=== PATIENT | female | born 1955 | race Caucasian/White ===

== ENCOUNTER → 2016-08-19 10:14 | Day surgery (SDC) | payer BC ==
--- NOTE | 2016-08-14 17:11 | HP ---
ADMISSION HISTORY AND PHYSICAL: DATE OF ADMISSION: 08/19/16 ATTENDING SURGEON: Sampson Peter MD (MALI Sorto dictating) EMT P COMPLAINT: Umbilical hernia. HISTORY OF PRESENT ILLNESS: This is a 61-year-old female with multiple medical problems who has had an umbilical hernia for many years and had been relatively asymptomatic until recent months when she noticed some increased frequency of discomfort and gurgling noise requiring manual reduction. It has always been reducible. She has never had any severe pain or anything to suggest incarceration or strangulation. She had had multiple previous CT scans, all of which have apparently shown fat-containing umbilical hernia. She was seen in the office by Dr. Peter on 08/01/16 at which time, exam confirmed the presence of a minimally tender reducible umbilical hernia. Dr. Peter has discussed with her the indications for repair, the risks, benefits, and alternatives. She has also been seen recently by Dr. Hall for Cardiology followup. Because of her past history of DVTs as well as strong family history of same, she was recommended to bridge her usual warfarin with Lovenox therapy. She is instructed to hold her warfarin after 08/13/16 dose with plans to resume at the evening of surgery unless otherwise directed by Dr. Peter. She will initiate Lovenox 100 mg SC b.i.d. beginning 08/16/16 and continuing through the morning dose of 08/18/16. Postoperatively, she will resume Lovenox on the morning of 08/21/16 and continue b.i.d. until her INR is greater than or equal to 2. She does have an INR robel at home. PAST MEDICAL HISTORY: Morbid obesity; type 2 diabetes; hypertension; DVT x2 left lower extremity, both following injuries; hyperlipidemia; depression; GERD ; neuropathic pain of the right groin; allergic and seasonal rhinitis; and history of asthma. PREVIOUS SURGERIES: Right shoulder surgery x2 (most recently about 3 years ago , for which she also did Lovenox bridging), D and C remotely, right breast lumpectomy for benign disease 2003, sinus surgery x4, endometrial biopsy 2011, and x2 both via vertical midline incision. No reported surgical or anesthesia problems. CURRENT MEDICATIONS: 1. Warfarin 1 mg tablet. She takes 2 tablets every Thursday, Thursday, Thursday , Thursday, and Thursday and 3 tablets every Thursday and and checks her own INR once weekly with recommendations per Dr. Adhikari's office. 2. Iron 65 mg once daily. 3. Vitamin C 500 mg once daily. 4. Atorvastatin 10 mg once daily. 5. Fexofenadine 180 mg once daily. 6. Bupropion XL 150 mg once daily. 7. Metoprolol succinate ER 25 mg once daily. 8. Gabapentin 100 mg 2 tablets q.a.m. and 1 tablet q. noon. 9. Gabapentin 600 mg 1 tablet q.p.m. 10. Fluoxetine 20 mg and 10 mg 1 tablet each for a total of 30 mg once daily. 11. Losartan/HCTZ 100/25 mg 1 tablet once daily. 12. Metformin 1000 mg b.i.d. 13. Omeprazole 20 mg once daily. 14. Januvia 100 mg once daily. 15. Symbicort 80/4.5 mcg/activation 2 puffs twice daily p.r.n. (has not need recently). 16. ProAir HFA 108 mcg/activation 2 puffs every 4 hours p.r.n. (has not required recently). ALLERGIES: TETRACYCLINE (difficulty breathing), TRAMADOL (weird feeling), ASPIRIN (GI upset), and LATEX (rash). FAMILY HISTORY: Positive for DVT and multiple family members including her mother and brother. No reported anesthesia problems or bleeding disorder. SOCIAL HISTORY: The patient is . They also have a special needs child who lives with them on weekends. 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 The patient denies history of tobacco use or recent history of alcohol use. She denies any other drug use. REVIEW OF SYSTEMS: General: No recent constitutional symptoms or acute illnesses other than per the HPI. Cardiovascular: She has a history of hypertension. No recent episodes of chest pain (previous evaluation revealed an equivocal nuclear stress test, but normal catheterization. See also Dr. Hall's note). Respiratory: History of asthma. No recent exacerbation of her asthma. No shortness of breath or chronic cough. GI: GERD symptoms well controlled with omeprazole. No other GI symptoms reported. She has had apparently a few benign polyps removed in the past, most recent colonoscopy in her chart record is 2011. : No problems reported. BAG FILLER: She states that she is up-to-date for breast exam in May 2016 and mammogram within the past year and a half. No problems reported. Endocrine: She does fingersticks once weekly. Her most recent being 132. She believes that her most recent A1c was around 7. No history of thyroid dysfunction. Neurological: No problems reported. PHYSICAL EXAMINATION GENERAL: A well-nourished morbidly obese female, in no acute distress. VITAL SIGNS: Height 67.5 inches, weight 274 pounds, BMI 42.3, temperature 97.8 , blood pressure 124/84, pulse 78, and respirations 16. SKIN: Warm and dry. No suspicious rashes or lesions noted. See also below for extremities. HEENT: Pupils equal and round, reactive. EOMs intact. No conjunctival pallor. Oropharynx: Teeth in [id number]-moax repair. She does have a partial upper denture. No intraoral lesions. NECK: No lymphadenopathy, thyromegaly, or masses. LUNGS: Clear to auscultation. No wheezes. HEART: Regular rate and rhythm. No murmur noted. BREASTS: Not examined. ABDOMEN: A well-healed lower midline incision. There is a visible and palpable bones at the umbilicus as described in the HPI. The remainder of the abdomen is soft and nontender without palpable masses or organomegaly, though exam is limited by body habitus. GENITALIA: Not done. RECTUM: Not done. BACK: No spinous process or CVA tenderness. EXTREMITIES: No significant edema. There are hyperpigmentation changes in both lower extremities, left greater than right. No open ulcerations. No calf tenderness. IMPRESSION: Umbilical hernia. PLAN/RECOMMENDATIONS: Open repair, umbilical hernia with mesh. MALI SORTO CC: Jessica Adhikari MD; Frank Hall MD* [id number]/[facility] #: [id number] MTDD
[~2016-08-19 10:14] MED LIST: Buffered Lidocaine 1% SYR 3ML* 3 ML/SYR SYRINGE INTRADERM ONE; Bupivacaine 0.5% W/EPI SDV* 30 ML VIAL ONE; Cisatracurium* 2 MG/ML MDV 10 ML ONE; Dexamethasone IV* 4 MG/ML 1 ML (4 MG) ONE; DiMENhydriNATE IV* 50 MG/ML VIAL IV PUSH PRN; Famotidine IV* 10 MG/ML 2 ML (20 mg) IV ONE; Famotidine IV* 10 MG/ML 2 ML (20 mg) ONE; HYDROmorphone INJ* 1 MG/ML CARPUJECT SYRINGE ONE; KETAMINE HCL* 50 MG/ML 10 ML VIAL ONE; Ketorolac INJ* 30 MG/ML 1 ML VIAL ONE; Lidocaine 1% INJ* 10 MG/ML 30 ML SDV ONE; Lidocaine 2% PF * 5 ML VIAL ONE; Metoclopramide TAB* 10 MG ONE; Metoclopramide TAB* 10 MG PO ONE; Midazolam* 1 MG/ML 2 ML VIAL (2 MG) ONE; Midazolam* 1 MG/ML 5 ML VIAL (5 MG) ONE; Ondansetron INJ* 2 MG/ML VIAL IV PRN; Ondansetron INJ* 2 MG/ML VIAL ONE; Propofol* 10 MG/ML 20 ML BTL IV PUSH ONE; ceFAZolin 1 GM in Dextrose (*) 1 GM/50 ML BAG IVPB ONE; ceFAZolin 2 GM PREMIX (*) 2 GM/50 ML BAG IVPB ONE; fentaNYL* 50 MCG/ML 2 ML VIAL (100 MCG VIAL) IV PRN; fentaNYL* 50 MCG/ML 2 ML VIAL (100 MCG VIAL) ONE; oxyCODONE/Acetamin 5/325 MG* TAB PO PRN
[2016-08-19] MEDS: HYDROmorphone INJ* 1 MG/ML CARPUJECT SYRINGE IV PRN ×2 (14:08→14:54)
[2016-08-19 15:10] VITALS: BP 112/63
--- NOTE | 2016-08-20 13:47 | OP ---
DATE OF OPERATION: 08/19/16 - [facility] DATE OF : 53 SURGEON: Sampson Peter MD CLINICAL AUDITOR: MALI Oconnor ANESTHESIOLOGIST: Douglas Slade MD ANESTHESIA: Local MAC. PRE-OP DIAGNOSIS: Umbilical hernia. POST-OP DIAGNOSIS: Umbilical hernia. OPERATIVE PROCEDURE: Open repair umbilical hernia with mesh. ESTIMATED BLOOD LOSS: Minimal. IV FLUIDS: Crystalloid. SPECIMEN: None. DRAINS: None. COMPLICATIONS: None. INSTRUMENTS: The instrument, needle and sponge counts were correct. DESCRIPTION OF PROCEDURE: The patient was brought to the operating room and placed on table supine. Sequential compression devices were placed on both lower extremities. She was administered intravenous sedation and appropriate antibiotics. Her abdomen was prepped and draped in the usual sterile fashion. Time-out was performed. Local anesthetic was infiltrated into the skin and soft tissue and then a curvilinear infraumbilical incision was created. The umbilical stalk was elevated off the abdominal wall. A large fatty infiltrated umbilical hernia sac was identified and this was dissected free from the umbilical ring. The preperitoneal space was developed bluntly with a finger and also with the use of cautery. At one point, the peritoneum was entered, however, with a small rent. The repair was then performed with the Bard circular mesh using a large size patch and placing this into the preperitoneal space and elevating the tabs so that the mesh could be sutured to the fascia in 4 quadrants with 0 Ti-Cron suture. The tabs were cut and then the fascial defect was closed with same 0 Ti -Cron in interrupted figure-of- eight fashion. Umbilical stalk was reapproximated to the fascia with a 3-0 Polysorb and skin was closed with 4-0 Monocryl in a subcuticular fashion. Steri-Strips were applied. The patient tolerated the procedure well. She was transferred to recovery room in stable condition. CC: Jessica Adhikari M.D.* [id number]/[facility] #: [id number] [place]
== END | disposition home or self-care (01) ==
LOC: OR 10:14
PROVIDERS: ATTEND Surgery
DX: K42.9 Umbilical hernia without obstruction or gangrene (principal); Z86.718 Personal history of other venous thrombosis and embolism; Z79.01 Long term (current) use of anticoagulants; E11.8 Type 2 diabetes mellitus with unspecified complications; Z79.84 Long term (current) use of oral hypoglycemic drugs; J45.909 Unspecified asthma, uncomplicated
CPT/HCPCS: A9270-GY; C1781; J0690; J1100; J1170; J1885; J2250; J2405; J2704; J3010

== ENCOUNTER 2018-10-17 11:46 | Emergency (ER) | payer BC ==
[2018-10-17] MEDS ORDERED: Aspirin 81 mg CHEW TAB* 81 MG TAB.CHEW PO ONE (12:01)
--- NOTE | 2018-10-17 12:03 | ED ---
HPI Chest Pain - HPI Summary HPI Summary: This patient is a 63 year old female presenting to [facility] with a chief complaint of chest pain minutes [employer]. The patient states it started with epigastric pain, nausea, vomiting last night and progressed to mid-sternal chest pain that radiates to her right arm and her back this morning. She reports SOB, diaphoresis. She denies diarrhea and constipation. She rates her pain 7/10 in severity. The patient reports Hx of diabetes, HTN, HLD. Fexofenadine (NF) [Maryam 180 (NF)] 1 tab PO QAM 06/02/12 [History Confirmed ] Atorvastatin* [Lipitor 10 MG*] 1 tab PO DAILY 05/22/14 [History Confirmed ] buPROPion HCl [Bupropion HCl ER] 1 tab PO DAILY 05/22/14 [History Confirmed 12/29] Albuterol inh POWDER (NF) [Proair Respiclick] 2 puff INH Q4H PRN 09/06/15 [ History Confirmed 08/19/16] Ascorbic Acid [Vitamin C] 1 tab PO TID 09/06/15 [History Confirmed 08/19/16] Budesonide/Formote 80/4.5(NF) [Symbicort 80/4.5 (NF)] 1 puff INH BID PRN [History Confirmed 08/19/16] Ferrous Sulfate 1 tab PO DAILY 09/06/15 [History Confirmed 08/19/16] Gabapentin CAP(*) [Neurontin 300 CAP(*)] 600 mg PO BEDTIME 09/06/15 [History Confirmed 08/19/16] Gabapentin [Neurontin] 1 - 2 tab PO SEE INSTRUCTIONS 09/06/15 [History Confirmed 08/19/16] Omeprazole [Prilosec] 1 cap PO DAILY 09/06/15 [History Confirmed 08/19/16] Sitagliptin Phosphate [Januvia] 1 tab PO DAILY 09/06/15 [History Confirmed 08/19] Warfarin Sodium 2 - 3 tab PO SEE INSTRUCTIONS 09/06/15 [History Confirmed ] FLUoxetine CAP* [Prozac CAP*] 1 cap PO DAILY 09/07/15 [History Confirmed ] FLUoxetine CAP* [Prozac CAP*] 1 cap PO DAILY 09/07/15 [History Confirmed ] Losartan/Hydrochlorothiazide [Hyzaar 100/12.5 mg] 1 tab PO DAILY 09/07/15 [ History Confirmed 08/19/16] Metoprolol Succinate ER 1 tab PO DAILY 09/07/15 [History Confirmed 08/19/16] metFORMIN* [Glucophage 1000 MG TAB *] 1 tab PO BID 09/07/15 [History Confirmed 08/19/16] Lovenox SUBCUT BID 08/19/16 [History] - History of Current Complaint Chief Complaint: EDChestPainROMI Time Seen by Provider: 10/17/18 11:54 Hx Obtained From: Patient Hx Last Menstrual Period: 05/18/12 Onset/Duration: Started Minutes Ago, Started Hours Ago Timing: Constant Initial Severity: Moderate Current Severity: Moderate Pain Intensity: 7 Pain Scale Used: 0-10 Numeric Chest Pain Location: Mid Sternal, Lower Sternal Chest Pain Radiates To:: Back, Arm, Epigastric Associated Signs and Symptoms: Positive: Chest Pain, Shortness of Breath, Diaphoresis, Nausea, Vomiting - Allergy/Home Medications Allergies/Adverse Reactions: Allergies Allergy/AdvReac Type Severity Reaction Status Date / Time shellfish derived Allergy Anaphylatic Verified 10/17/18 11:51 Shock tetracycline Allergy Anaphylatic Verified 10/17/18 11:51 Shock tomato Allergy Nausea Verified 10/17/18 11:51 latex Allergy Severe Hives Uncoded 10/17/18 11:51 environmental Allergy Unknown Uncoded 10/17/18 11:51 Reaction Details Soy AdvReac Mild Abdominal Uncoded 10/17/18 11:51 Pain Wheat AdvReac Mild Abdominal Uncoded 10/17/18 11:51 Pain PMH/Surg Hx/FS Hx/Imm Hx Endocrine/Hematology History: Reports: Hx Diabetes - TYPE II- ON ORAL MEDICATION FOR Denies: Hx Thyroid Disease Cardiovascular History: Reports: Hx Deep Vein Thrombosis - x 2 last time 2 yrs ago, Hx Hypercholesterolemia, Hx Hypertension, Hx Peripheral Vascular Disease - HAS HAD CLOTS, ON DAILY COUMADIN, Other Cardiovascular Problems/Disorders - HX OF DVT'S- ON DAILY COUMADIN- LAST APPROX 3-4 YEARS AGO Denies: Hx Congestive Heart Failure, Hx Pacemaker/ICD Respiratory History: Reports: Hx Asthma - PRN MEDICATION FOR Denies: Hx Chronic Obstructive Pulmonary Disease (COPD) GI History: Reports: Hx Gastroesophageal Reflux Disease - ON MEDICATION FOR, Other GI Disorders - see hx Denies: Hx Ulcer History: Denies: Hx Dialysis, Hx Renal Disease Musculoskeletal History: Reports: Hx Arthritis - HANDS Denies: Hx Rheumatoid Arthritis, Hx Osteoporosis, Hx Scoliosis Sensory History: Reports: Hx Contacts or Glasses - READING GLASSES Denies: Hx Hearing Aid Opthamlomology History: Reports: Hx Contacts or Glasses - READING GLASSES Psychiatric History: Reports: Hx Depression - ON MEDICATION FOR Denies: Hx Panic Disorder - Cancer History Hx Chemotherapy: No Hx Radiation Therapy: No - Surgical History Surgery Procedure, Year, and Place: RIGHT SHOULDER ROTATOR CUFF REPAIR X 2 - [facility]. X 2. SINUS SURGERY X 3 Hx Anesthesia Reactions: No Infectious Disease History: No Infectious Disease History: Denies: Hx Hepatitis, Hx Human Immunodeficiency Virus (HIV), Traveled Outside the [place] in Last 30 Days - Family History Known Family History: Positive: Cardiac Disease - Social History Alcohol Use: None Substance Use Type: Reports: None Smoking Status (MU): Never Smoked Tobacco Review of Systems Positive: Skin Diaphoresis Positive: Chest Pain - Radiates to arm and back. Positive: Shortness Of Breath Positive: Abdominal Pain, Vomiting, Nausea, Other - Neg: Constipation. Negative : Diarrhea All Other Systems Reviewed And Are Negative: Yes Physical Exam - Summary Physical Exam Summary: VITAL SIGNS: Reviewed. GENERAL: Patient is an obese FEMALE who is lying in moderate pain distress secondary to nausea and epigastric pain in the stretcher. Patient is not in any acute respiratory distress. HEAD AND FACE: No signs of trauma. No ecchymosis, hematomas or skull depressions. No sinus tenderness. EYES: PERRLA, EOMI x 2, No injected conjunctiva, no nystagmus. EARS: Hearing grossly intact. Ear canals and tympanic membranes are within normal limits. MOUTH: Oropharynx within normal limits. NECK: Supple, trachea is midline, no adenopathy, no JVD, no carotid bruit, no c- spine tenderness, neck with full ROM. CHEST: Symmetric, no tenderness at palpation LUNGS: Clear to auscultation bilaterally. No wheezing or crackles. CVS: Regular rate and rhythm, S1 and S2 present, no murmurs or gallops appreciated. ABDOMEN: Soft, epigastric tenderness upon palpation. No signs of distention. No rebound no guarding, and no masses palpated. Bowel sounds are normal. EXTREMITIES: FROM in all major joints, no edema, no cyanosis or clubbing. NEURO: Alert and oriented x 3. No acute neurological deficits. Speech is normal and follows commands. SKIN: Dry and warm. Discoloration on lower extremities secondary to peripheral vascular disease. Triage Information Reviewed: Yes Vital Signs On Initial Exam: Initial Vitals Temp Pulse Resp BP Pulse Ox 96 F 77 18 143/88 100 10/17/18 11:51 10/17/18 11:51 10/17/18 11:51 10/17/18 11:51 10/17/18 11:51 Vital Signs Reviewed: Yes Diagnostics - Vital Signs Vital Signs Temp Pulse Resp BP Pulse Ox 10/17/18 11:51 96 F 77 18 143/88 100 - Laboratory Result Diagrams: 10/17/18 12:00 10/17/18 12:00 Lab Statement: Any lab studies that have been ordered have been reviewed, and results considered in the medical decision making process. - Radiology CXR Radiology Interpretation Completed By: Radiologist Summary of Radiographic Findings: No radiographic evidence for acute cardiopulmonary abnormality on this portable chest x-ray. ED Provider has reviewed this report. - Ultrasound No standard instances Ultrasound Interpretation Completed By: Radiologist Summary of Ultrasound Findings: Gallbladder: 1. Cholelithiasis without evidence of pathologic biliary obstruction or acute inflammatory change. 2. There is a hypoechoic well-circumscribed lesion in the posterior most portion of the left lobe of the liver that appears to correspond to the hemangioma seen on the November 24, 2013 CT of the abdomen and pelvis. ED Provider has reviewed this report. - EKG 1157 Cardiac Rate: NL - 73 BPM EKG Rhythm: Sinus Rhythm Ectopy: None Summary of EKG Findings: No St-Elevations, Normal [place]. Re-Evaluation - Re-Evaluation Second Eval Re-Evaluation Time: 14:52 Change: Improved Comment: Chest pain and nausea has resolved. Follow up with surgery to treat cholelithisasis. Chest Pain Course/Dx - Course Assessment/Plan: This patient is a 63-year-old female who presents to the emergency department with a chief complaint of epigastric pain with radiation to the back and to the chest. Patient reports that the epigastric pain acid with nausea and not feeling well started last night worsening this morning. Patient has past medical history significant for diabetes, hypertension, dyslipidemia, asthma and DVT for which the patient is taking Coumadin. In the ED course we placed the patient in a front desk monitor, IV access was obtained, she was given an aspirin for the chest pain and Zofran for the nausea and vomiting. EKG shows a normal sinus rhythm without any ST elevation and the EKG is similar to previous EKG done in the emergency department. Blood test results without any significant abnormality except for potassium of 3.3, glucose 122, lactic acid is 3.2 magnesium is 1.6. Troponin is 0.00. On reexamination of the patient: patient has developed more right upper quadrant pain. Therefore decided to do and right upper quadrant ultrasound to rule out acute cholecystitis. The patient also was given morphine for the pain. She was also given potassium IV and magnesium IV for the hypokalemia and hypomagnesemia. RUQ U/S IMPRESSION: 1. CHOLELITHIASIS WITHOUT EVIDENCE OF PATHOLOGIC BILIARY OBSTRUCTION OR ACUTE INFLAMMATORY CHANGE. 2. THERE IS A HYPOECHOIC WELL-CIRCUMSCRIBED LESION IN THE POSTERIOR MOST PORTION OF THE LEFT LOBE OF THE LIVER THAT APPEARS TO CORRESPOND TO THE HEMANGIOMA SEEN ON THE NOVEMBER 242013 CT OF THE ABDOMEN AND PELVIS. After the patient was given the morphine the patients symptoms have significantly improved. I believe that her pain is secondary to gallbladder attack and now he has resolved. Therefore the patient shell be discharged home with follow-up with surgery and the primary care physician. The patient doesnt have any signs of infection, denies any diarrhea, denies any cough, denies any urinary symptoms. Therefore believe that the increase lactic acid is secondary to increased glucose. Second troponin is 0.00. All patients symptoms have resolved. The patient is eating and drinking without any nausea vomiting and no pain. Therefore the patient will be discharged home with follow-up with surgery and the primary care physician. Patient continues to be hemodynamically stable alert and oriented 3. Right before the patient was discharged and she developed again another episode of epigastric pain acid with nausea and vomiting. Therefore I ordered the patient morphine and Zofran and the symptoms have significantly improved. I discussed my physical exam, findings and test results with Dr. Jones from surgery and he recommends at this point pain control and for the patient to be discharged home and follow up with his office. Therefore, the patient's pain is under control and she is feeling better therefore the patient will be discharged home with follow-up with surgery and primary care physician. The patient was given a prescription for Zofran and [place] for control pain. - Chest Pain Differential Diagnosis/HQI/PQRI: Acute MD, ACS, Angina, CHF, Chest Wall, GI Disease, Lower Respiratory Infection - Diagnoses Provider Diagnoses: Cholelithiasis - Provider Notifications Discussed Care Of Patient With: Lalo Jones - Surgery Time Discussed With Above Provider: 15:44 Instructed by Provider To: Other - Pain management then discharge. If she still does not want to be discharged she will be admitted. Discharge - Sign-Out/Discharge Documenting (check all that apply): Patient Departure - Discharge Patient Received Moderate/Deep Sedation with Procedure: No - Discharge Plan Condition: Stable Disposition: HOME Prescriptions: HYDROcodone/ACETAMIN 5-325 MG* [[place] 5-325 TAB*] 1 tab PO Q6H PRN #10 tab MDD 4 PRN Reason: Pain Ondansetron ODT TAB* [Zofran 4 MG Odt TAB*] 4 mg PO Q6H PRN #10 tab.odt PRN Reason: Nausea Patient Education Materials: Gallstones (ED) Referrals: Lalo Jones MD [Medical Doctor] - 3 Days Additional Instructions: Follow up with surgery to treat gallstones. Return to ED with any new or worsening symptoms. - Billing Disposition and Condition Condition: STABLE Disposition: Home - Attestation Statements Document Initiated by Zbigniew: Yes Documenting Scribe: Donnie Simpson Provider For Whom Zbigniew is Documenting (Include Credential): Denny Alanis MD Scribe Attestation: Donnie Mendoza scribed for Denny Alanis MD on 10/17/18 at 2101. Scribe Documentation Reviewed: Yes Provider Attestation: The documentation as recorded by the Donnie garcia accurately reflects the service I personally performed and the decisions made by me, Denny Alanis MD Status of Scribe Document: Viewed
[2018-10-17] MEDS ORDERED: Ondansetron INJ* 2 MG/ML VIAL IV ONE (12:04)
[2018-10-17 12:36] LABS: ABS Basophils 0.1 10^3/ul (0-0.2); ABS Eosinophils 0.3 10^3/ul (0-0.6); ABS Lymphocytes 2.5 10^3/ul (1.0-4.8); ABS Monocytes 0.5 10^3/ul (0-0.8); ABS Neutrophils 5.2 10^3/ul (1.5-7.7); Hematocrit 37 % (35-47); Hemoglobin 12.3 g/dL (12.0-16.0); Lymphocyte % 29.6 %; Mean Corpuscular HGB Conc 33 g/dL (31-36); Mean Corpuscular Hemoglobin 25 pg (27-31); Mean Corpuscular Volume 77 fL (80-97); Mean Platelet Volume 7.9 fL (7.4-10.4); Nucleated Red Blood Cells % 0.1; Platelet Count 257 10^3/uL (150-450); Red Blood Count 4.85 10^6 /uL (3.70-4.87); Red Cell Distribution Width 16 % (10.5-15); White Blood Count 8.5 10^3/uL (3.5-10.8)
[2018-10-17 12:45] LABS: Activated Partial Thrombo Time 29.7 seconds (26.0-36.3)
[2018-10-17] MEDS ORDERED: Nitroglycerin TAB 0.4 MG* 0.4 MG TAB SL PRN (12:46)
[2018-10-17] MEDS ORDERED: Morphine 4 MG/ML VIAL (1 ml) 4 MG/ML VIAL IV ONE ×2 (12:48→15:35)
[2018-10-17 12:56] LABS: Albumin/Globulin Ratio 1.2 (1-3); BUN/Creatinine Ratio 14.5 (8-20); Calcium 9.4 mg/dL (8.6-10.3); EGFR African American 83.7 (>60); EGFR Non-African American 69.2 (>60); Globulin 3.4 g/dL (2-4); Magnesium 1.6 mg/dL (1.9-2.7); Potassium 3.3 mmol/L (3.5-5.0); Total Bilirubin 0.4 mg/dL (0.2-1.0); Total Protein 7.4 g/dL (6.4-8.9)
[2018-10-17 12:59] LABS: CKMB ng/mL 2.1 ng/mL (0.6-6.3)
[2018-10-17] MEDS ORDERED: KCL 10 MEQ/50 ML IVPREMIX* 10 MEQ/50 ML BAG IV ONE (13:13)
[2018-10-17 13:14] LABS: TSH (Thyroid Stimulating Horm) 2.51 mcIU/mL (0.34-5.60)
[2018-10-17] MEDS ORDERED: Magnesium Sulfate 1 GM IV* 1 GM/100 ML BAG IV ONE (13:14)
[2018-10-17 14:40] LABS: Urine Appearance Clear; Urine Bilirubin Negative (Negative); Urine Blood Negative (Negative); Urine Color Yellow; Urine Glucose Negative (Negative); Urine Ketones Trace (Negative); Urine Nitrite Negative (Negative); Urine Protein Negative (Negative); Urine Specific Gravity 1.016 (1.010-1.030); Urine Urobilinogen Negative (Negative)
[2018-10-17] MEDS ORDERED: Metoclopramide IV* 5 MG/ML 2 ML VIAL IV ONE (15:36)
[2018-10-17 16:07] LABS: INR 1.1 (0.82-1.09)
[2018-10-17 16:16] LABS: C Reactive Protein 15.02 mg/L (<8.01)
[2018-10-17 16:35] VITALS: BP 138/80
== END 2018-10-17 16:34 | disposition home or self-care (01) ==
LOC: ED 11:46
DX: K80.20 Calculus of gallbladder without cholecystitis without obstruction (principal); R07.9 Chest pain, unspecified; R06.02 Shortness of breath; R11.0 Nausea; E11.9 Type 2 diabetes mellitus without complications; Z86.718 Personal history of other venous thrombosis and embolism; I10 Essential (primary) hypertension; I73.9 Peripheral vascular disease, unspecified; R11.2 Nausea with vomiting, unspecified; K21.9 Gastro-esophageal reflux disease without esophagitis
CPT/HCPCS: 36415; 71045; 76705; 80053; 81003; 82550; 82553; 83605; 83690; 83735; 83880; 84443; 84484; 85025; 85610; 85730; 86140; 93005; 96365; 96375; 96376; 99284; A9270-GY; J2270; J2405; J2765; J3475; J3480

== ENCOUNTER 2018-10-18 09:04 | Inpatient (IN) | payer BC ==
[2018-10-18] MEDS ORDERED: Ondansetron INJ* 2 MG/ML VIAL IV ONE (09:38)
[2018-10-18] MEDS ORDERED: Morphine 4 MG/ML VIAL (1 ml) 4 MG/ML VIAL IV ONE (09:39)
[2018-10-18] MEDS ORDERED: NS 0.9% 1000 ML** 1,000 ML IV ONE ×3 (09:39→11:25)
[2018-10-18 10:09] LABS: ABS Eosinophils 0.3 10^3/ul (0-0.6); ABS Lymphocytes 1.7 10^3/ul (1.0-4.8); ABS Monocytes 1.1 10^3/ul (0-0.8); ABS Neutrophils 11.6 10^3/ul (1.5-7.7); Hematocrit 37 % (35-47); Hemoglobin 12.1 g/dL (12.0-16.0); Lymphocyte % 11.7 %; Mean Corpuscular HGB Conc 33 g/dL (31-36); Mean Corpuscular Hemoglobin 25 pg (27-31); Mean Corpuscular Volume 77 fL (80-97); Mean Platelet Volume 7.9 fL (7.4-10.4); Platelet Count 236 10^3/uL (150-450); Red Blood Count 4.82 10^6 /uL (3.70-4.87); Red Cell Distribution Width 16 % (10.5-15); White Blood Count 14.8 10^3/uL (3.5-10.8)
[2018-10-18] MEDS ORDERED: ED Piperacillin/Tazobac 3.375 3.375 GM/100 ML PREMIX.SET IVPB ONE (10:26)
[2018-10-18] MEDS ORDERED: Piperacillin/Tazobac (*) 3.375 GM BAG ONE (10:30)
[2018-10-18 10:32] LABS: Albumin 3.8 g/dL (3.2-5.2); Albumin/Globulin Ratio 1.1 (1-3); BUN/Creatinine Ratio 12.7 (8-20); C Reactive Protein 42.93 mg/L (<8.01); Calcium 8.8 mg/dL (8.6-10.3); EGFR African American 88.7 (>60); EGFR Non-African American 73.3 (>60); Globulin 3.4 g/dL (2-4); Potassium 3.5 mmol/L (3.5-5.0); Total Bilirubin 0.6 mg/dL (0.2-1.0); Total Protein 7.2 g/dL (6.4-8.9)
--- NOTE | 2018-10-18 10:48 | ED ---
Abdominal Pain/Female - HPI Summary HPI Summary: Patient is a 63-year-old female who presents emergency department for worsening , constant right upper quadrant pain and fever times one day. Patient was seen in the ER yesterday for chest and back pain and was diagnosed with cholelithiasis. Patient received pain medication and her pain resolved when she was discharged from the ER yesterday. Patient states she was prescribed hydrocodone which is normal on are helping for the pain. Symptoms are moderate in severity. No current modifying factors. No associate symptoms of chest pain , shortness breath. - History of Current Complaint Chief Complaint: EDAbdPain Stated Complaint: GALL STONES PER PT Time Seen by Provider: 10/18/18 09:25 Hx Obtained From: Patient Hx Last Menstrual Period: 05/18/12 Pain Intensity: 8 Allergies/Adverse Reactions: Allergies Allergy/AdvReac Type Severity Reaction Status Date / Time enoxaparin [From Lovenox] Allergy Hives Verified 10/18/18 09:17 shellfish derived Allergy Anaphylatic Verified 10/18/18 09:17 Shock tetracycline Allergy Anaphylatic Verified 10/18/18 09:17 Shock tomato Allergy Nausea Verified 10/18/18 09:17 latex Allergy Severe Hives Uncoded 10/18/18 09:17 environmental Allergy Unknown Uncoded 10/18/18 09:17 Reaction Details Soy AdvReac Mild Abdominal Uncoded 10/18/18 09:17 Pain Wheat AdvReac Mild Abdominal Uncoded 10/18/18 09:17 Pain Home Medications: Home Medications Apixaban* [Eliquis*] 5 mg PO BID 10/18/18 [History Confirmed 10/18/18] PMH/Surg Hx/FS Hx/Imm Hx Previously Healthy: Yes Endocrine/Hematology History: Reports: Hx Diabetes - TYPE II- ON ORAL MEDICATION FOR Denies: Hx Thyroid Disease Cardiovascular History: Reports: Hx Deep Vein Thrombosis - x 2 last time 2 yrs ago, Hx Hypercholesterolemia, Hx Hypertension, Hx Peripheral Vascular Disease - HAS HAD CLOTS, ON DAILY COUMADIN, Other Cardiovascular Problems/Disorders - HX OF DVT'S- ON DAILY COUMADIN- LAST APPROX 3-4 YEARS AGO Denies: Hx Congestive Heart Failure, Hx Pacemaker/ICD Respiratory History: Reports: Hx Asthma - PRN MEDICATION FOR Denies: Hx Chronic Obstructive Pulmonary Disease (COPD) GI History: Reports: Hx Gastroesophageal Reflux Disease - ON MEDICATION FOR, Other GI Disorders - see hx Denies: Hx Ulcer History: Denies: Hx Dialysis, Hx Renal Disease Musculoskeletal History: Reports: Hx Arthritis - HANDS Denies: Hx Rheumatoid Arthritis, Hx Osteoporosis, Hx Scoliosis Sensory History: Reports: Hx Contacts or Glasses - READING GLASSES Denies: Hx Hearing Aid Opthamlomology History: Reports: Hx Contacts or Glasses - READING GLASSES Psychiatric History: Reports: Hx Depression - ON MEDICATION FOR Denies: Hx Panic Disorder - Cancer History Hx Chemotherapy: No Hx Radiation Therapy: No - Surgical History Surgery Procedure, Year, and Place: RIGHT SHOULDER ROTATOR CUFF REPAIR X 2 - [facility]. X 2. SINUS SURGERY X 3 Hx Anesthesia Reactions: No Infectious Disease History: No Infectious Disease History: Denies: Hx Hepatitis, Hx Human Immunodeficiency Virus (HIV), Traveled Outside the [place] in Last 30 Days - Family History Known Family History: Positive: Cardiac Disease, Non-Contributory - Social History Occupation: Retired Lives: With Family Alcohol Use: None Substance Use Type: Reports: None Smoking Status (MU): Never Smoked Tobacco Review of Systems Positive: Fever, Chills Cardiovascular: Negative Negative: Palpitations, Chest Pain Respiratory: Negative Negative: Shortness Of Breath, Cough Positive: Abdominal Pain Genitourinary: Negative Neurological: Negative All Other Systems Reviewed And Are Negative: Yes Physical Exam Triage Information Reviewed: Yes Vital Signs On Initial Exam: Initial Vitals Temp Pulse Resp BP Pulse Ox 100.2 F 100 22 136/86 99 10/18/18 09:13 10/18/18 09:13 10/18/18 09:13 10/18/18 09:13 10/18/18 09:13 Vital Signs Reviewed: Yes Appearance: Positive: Pain Distress - Pt. sitting up in bed appears in pain, but nontoxic. present. Skin: Positive: Warm, Dry Head/Face: Positive: Normal Head/Face Inspection Eyes: Positive: Normal, EOMI, MYKEL Neck: Positive: Supple Respiratory/Lung Sounds: Positive: Clear to Auscultation, Breath Sounds Present Cardiovascular: Positive: Normal, RRR Abdomen Description: Positive: Other: - Obese. Abd. is soft. Marked tenderness to the RUQ with a positive Nuñez sign. Neurological: Positive: Normal, CN Intact II-III Psychiatric: Positive: Affect/Mood Appropriate Diagnostics - Vital Signs Vital Signs Temp Pulse Resp BP Pulse Ox 10/18/18 10:33 17 10/18/18 09:51 101.7 F 10/18/18 09:13 100.2 F 100 22 136/86 99 - Laboratory Lab Results: Lab Results 10/18/18 10/18/18 10/18/18 Range/Units 09:54 09:54 09:54 WBC 14.8 H (3.5-10.8) 10^3/uL RBC 4.82 (3.70-4.87) 10^6 /uL Hgb 12.1 (12.0-16.0) g/dL Hct 37 (35-47) % MCV 77 L (80-97) fL MCH 25 L (27-31) pg MCHC 33 (31-36) g/dL RDW 16 H (10.5-15) % Plt Count 236 (150-450) 10^3/uL MPV 7.9 (7.4-10.4) fL Neut % (Auto) 78.5 % Lymph % (Auto) 11.7 % [place] % (Auto) 7.5 % Eos % (Auto) 2.0 % Baso % (Auto) 0.3 % Absolute Neuts (auto) 11.6 H (1.5-7.7) 10^3/ul Absolute Lymphs (auto) 1.7 (1.0-4.8) 10^3/ul Absolute Monos (auto) 1.1 H (0-0.8) 10^3/ul Absolute Eos (auto) 0.3 (0-0.6) 10^3/ul Absolute Basos (auto) 0.0 (0-0.2) 10^3/ul Absolute Nucleated RBC 0.0 10^3/ul Nucleated RBC % 0.0 Sodium 135 (135-145) mmol/L Potassium 3.5 (3.5-5.0) mmol/L Chloride 99 L (101-111) mmol/L Carbon Dioxide 26 (22-32) mmol/L Anion Gap 10 (2-11) mmol/L BUN 10 (6-24) mg/dL Creatinine 0.79 (0.51-0.95) mg/dL Est GFR ( Amer) 88.7 (>60) Est GFR (Non-Af Amer) 73.3 (>60) BUN/Creatinine Ratio 12.7 (8-20) Glucose 185 H (70-100) mg/dL Lactic Acid 2.4 H* (0.5-2.0) mmol/L Calcium 8.8 (8.6-10.3) mg/dL Total Bilirubin 0.60 (0.2-1.0) mg/dL AST 16 (13-39) U/L ALT 15 (7-52) U/L Alkaline Phosphatase 112 H (34-104) U/L C-Reactive Protein 42.93 H (<8.01) mg/L Total Protein 7.2 (6.4-8.9) g/dL Albumin 3.8 (3.2-5.2) g/dL Globulin 3.4 (2-4) g/dL Albumin/Globulin Ratio 1.1 (1-3) Amylase 29 (29-103) U/L Lipase 10 L (11.0-82.0) U/L Result Diagrams: 10/18/18 09:54 10/18/18 09:54 Lab Statement: Any lab studies that have been ordered have been reviewed, and results considered in the medical decision making process. Abdominal Pain Fem Course/Dx - Course Course Of Treatment: Patient presenting with worsening right upper quadrant pain and a fever with known cholelithiasis. Rectal temperature 101.7F, mildly tachycardic, stable blood pressure. Patient was started on IV fluids and pain medication. Labs show leukocytosis of 14,000, elevation and CRP, normal liver function and normal bilirubin. Zosyn given. Lactic acid mildly elevated. Surgery was consulted, Dr. Odonnell. He does not want a repeat U/S. Pt. examined in ED by Dr. Odonnell around 1030. He will admit to his service with hospitalist consult. Pt. on Eliquis so will plan for OR tomorrow. Pt. has remained stable in ED. - Diagnoses Differential Diagnosis: Positive: Gall Bladder Disease, Hepatitis, Pancreatitis , Renal Colic Provider Diagnoses: Cholecystitis Discharge - Sign-Out/Discharge Documenting (check all that apply): Patient Departure Patient Received Moderate/Deep Sedation with Procedure: No - Discharge Plan Condition: Stable Disposition: ADMITTED TO [facility] Referrals: Jessica Adhikari MD [Primary Care Provider] - - Billing Disposition and Condition Condition: STABLE Disposition: Admitted to [facility]
[2018-10-18] MEDS ORDERED: Dextrose 50% Syringe 50 ML* 25 GM/50 ML SYRINGE IV PUSH PRN (11:43)
[2018-10-18] MEDS ORDERED: Mometasone/Formoter 100/5 MDI INH PRN (11:45)
[2018-10-18] MEDS ORDERED: HYDROcodone/ACETAMIN 5-325 MG* 1 TAB PO PRN (11:45)
[2018-10-18] MEDS ORDERED: Heparin VIAL(*) 5000 UNITS/ML VIAL (FIVE THOUSAND) SUBCUT ONE (11:45)
[2018-10-18] MEDS ORDERED: Pantoprazole TAB * 40 MG TAB PO SCH (11:47)
[2018-10-18] MEDS ORDERED: Albuterol/Ipratropium NEB.SOL* Albuterol 2.5 MG/Ipratropium 0.5 MG 3 ML INH PRN (11:49)
[2018-10-18] MEDS ORDERED: Zosyn per Pharmacy* NOTE FOLLOW UP SCH (12:00)
[2018-10-18] MEDS ORDERED: NS 0.9% 1000 ML** 1,000 ML IV SCH (12:00)
[2018-10-18] MEDS ORDERED: Buffered Lidocaine 1% SYRIN* 1 ML/SYRINGE INTRADERM ONE (13:42)
[2018-10-18] MEDS: Metoprolol Succinate XL TAB* 25 MG PO SCH (13:59)
[2018-10-18] MEDS: Ondansetron INJ* 2 MG/ML VIAL IV PRN (14:02)
[2018-10-18] MEDS: ZOSYN 3.375 GM Q8H per EXTENDED INFUSION IVPB SCH ×4 (14:28→21:44)
[2018-10-18] MEDS: Morphine INJ* 2 MG/ML 1 ML SYRINGE (TWO MG - NEW SYRINGE VERSION) IV PRN ×3 (15:20→23:36)
[2018-10-18] MEDS: Acetaminophen TAB* 325 MG PO PRN ×2 (16:01→21:42)
--- NOTE | 2018-10-18 16:19 | PN ---
Progress Note - Progress Note Date of Service: 10/18/18 SOAP: Subjective: Patient seen and examined Care discussed with Lashell Aviles NP She was in ER yesterday with RUQ abd pain, US with gallstones without acute cholecystitis Returned today with persistent pain, fever and elevated WBC Tenderness RUQ on exam Assessment: Acute calculous cholecystitis Obesity Hypercoagulable state-on Elliquis DM, HTN Plan: Admit Hospitalist consult IV abx Hold elliquis Lap choly tomorrow-procedure and risks all explained to patient.
--- NOTE | 2018-10-18 17:10 | HP ---
CC: Dr. Jessica Adhikari * ADMISSION HISTORY AND PHYSICAL: DATE OF ADMISSION: 10/18/18 This patient was seen on 10/18/18 in the [facility] Emergency Department. ATTENDING PROVIDER: Nelson Odonnell MD * (DICTATED BY MORGAN NARANJO NP) CHIEF COMPLAINT: Worsening right upper quadrant abdominal pain HISTORY OF PRESENT ILLNESS: The patient is a 63-year-old morbidly obese female who returned to the emergency room today complaining of worsening and constant right upper quadrant abdominal pain associated with fever. She was seen in the emergency department yesterday with chest and back pain and diagnosed with cholelithiasis and was discharged home when her pain was controlled. She returned today as previously mentioned with worsening right upper quadrant pain and temperature at home as high as 101.7. She rated her pain at 8/10 and also had associated chills. Yesterday, a gallbladder ultrasound revealed cholelithiasis without evidence of biliary obstruction or acute inflammatory changes; a hypoechoic lesion left lobe of the liver was noted corresponding to a hemangioma seen on a CAT scan of the abdomen and pelvis in 2013. Today, her white blood cell count was elevated at 14.8, CRP 42.93, lactic acid 2.4, glucose 185 and alkaline phosphatase 112. She was febrile in the emergency department 100 to 101.7. She was seen in consultation by the hospitalist service and has been optimized for laparoscopic cholecystectomy on 10/19/18. Because she had been on Eliquis, surgery was postponed until tomorrow, she took her last dose of Eliquis 10/17/18. PAST MEDICAL HISTORY: Significant for type 2 diabetes, deep vein thrombosis x2 , hypertension, hypercholesterolemia, peripheral vascular disease, asthma, GERD , and depression. PAST SURGICAL HISTORY: Umbilical hernia repair with mesh by Dr. Odonnell several years ago; section x2; right rotator cuff repair and sinus surgery. MEDICATIONS AT HOME: Include: 1. Fexofenadine. 2. Bupropion. 3. Atorvastatin. 4. Albuterol inhaler. 5. Prilosec. 6. Symbicort inhaler. 7. Ferrous sulfate. 8. Metoprolol. 9. Metformin. 10. Losartan/hydrochlorothiazide. 11. Fluoxetine. 12. Eliquis. ALLERGIES: LATEX, LOVENOX, SHELLFISH, TETRACYCLINE all have caused anaphylaxis. She has the following food allergies, ASPARTAME, TOMATOES, SOY, and WHEAT. FAMILY HISTORY: No known anesthesia complications, bleeding tendencies, or clotting disorders. SOCIAL HISTORY: She is and her accompanied her to the emergency department today. She has never been a smoker. She denies the use of alcohol or other substances. REVIEW OF SYSTEMS: Recent fever and chills; no excessive fatigue. Respiratory : No chronic cough or shortness of breath, history of asthma, no recent flare ups. Cardiovascular: No anginal chest pain. She has been on Eliquis for history of deep vein thrombosis. She has a history of peripheral vascular disease and hypertension. Gastrointestinal: As described in history of present illness as well as history of gastroesophageal reflux; no dark urine or light-colored stools. Endocrine: She has type 2 diabetes. Genitourinary: No history of renal disease. No dysuria. Musculoskeletal: No current joint or back pain. Neurologic: No current headache or blurred vision. Psychological: History of depression. General: No previous anesthesia complications. No history of MRSA infections. PHYSICAL EXAMINATION GENERAL SURVEY: The patient is a 63-year-old morbidly obese female in no acute distress. VITAL SIGNS: Height 5 feet 8 inches, weight 262 pounds, body mass index 39.8, blood pressure 136/86, pulse 99, respiratory rate 22, temperature 100.3 documented at 1300 today, O2 saturation on room air 95%. HEENT: Benign. NECK: Supple. No cervical lymphadenopathy. LUNGS: Breath sounds bilaterally clear and equal. HEART: Regular rate and rhythm. No murmurs or rubs appreciated. ABDOMEN: Obese, soft, nondistended, well healed surgical scar in the midline, tender right upper quadrant with mild guarding. No obvious masses, organomegaly , or evidence of hernia, but exam is limited by body habitus. EXTREMITIES: Full range of motion. No skin ulcerations. NEUROLOGIC: Alert and oriented x3. SKIN: Warm, dry, intact. PELVIC AND RECTAL EXAMS: Deferred. IMPRESSION: Acute cholecystitis, cholelithiasis. PLAN: Admit to Dr. Odonnell's service. She will have medical management by the hospitalist service who has already consulted and optimized the patient for laparoscopic cholecystectomy on 10/19/18; she will stay on clear liquids and then be n.p.o. after midnight. She will have IV fluid resuscitation and antibiotics. She will have pain medication and antiemetics as needed. There is a repeat serum lactic acid ordered for this afternoon. Dr. Odonnell has met the patient; the risks, benefits, and typical hospitalization in regard to the planned surgery were discussed with the patient. Her questions were answered and she agrees with the plan for admission. TIME SPENT: Sixty minutes with greater than 50% in [id number] history taking and coordination of care. MORGAN NARANJO NP [id number]/[facility] #: [id number] [place]
[2018-10-18] MEDS: Insulin LISPRO* 1 UNITS UNIT SUBCUT SCH ×2 (17:55→21:13)
--- NOTE | 2018-10-18 18:22 | CONS ---
CC: Dr. Jessica Adhikari; Dr. Nelson Odonnell * CONSULTATION REPORT: DATE OF CONSULT: 10/18/18 PRIMARY CARE PROVIDER: Dr. Jessica Adhikari. MY ATTENDING WHILE IN THE HOSPITAL: Dr. Debra Pierre. CONSULTING SURGEON: Dr. Nelson Odonnell. CHIEF COMPLAINT: Right upper quadrant pain x2 days. HISTORY OF PRESENT ILLNESS: Ms. Ordonez is a 63-year-old female with past medical history significant for provoked DVT x2, diabetes mellitus type 2, hypertension, and asthma, who presented to the emergency department on the second consecutive day for right upper quadrant pain. The patient states this started on Thursday in the afternoon with a gradual onset, not accompanied by any food or high-fat meal. The patient describes the patient as aching in her right upper quadrant with associated nausea and vomiting, which got worse particularly in the morning and afternoon of 10/17/18. The patient was able to take her morning mediations on Thursday, but promptly vomited them up. The patient has not been able to tolerate any medications or food since then. The patient denied of initially fevers or chills. The patient has had no recent illnesses. The patient never had anything like this before. The patient has no history known gallbladder pathology, nor any other intraabdominal pathology to her knowledge. The patient denied of chest pain or shortness of breath. The came to the emergency department, was evaluated, was found to have gallstones, and was sent for outpatient evaluation by a surgeon with consideration for cholecystectomy. The patient, however, still could not tolerate any food or drink, could not tolerate medications, could not tolerate the pain, which became quite severe, making it very difficult for her to even breathe. The patient then returned to the emergency department. The patient, in the emergency department, was found to have elevated white blood cell count, tachycardia, fevers up to 102.1 rectally, and elevated lactic acid. The plan was for the patient to be admitted by the surgical service for anticipated surgery on 10/19/18 and we were asked to consult for comanagement of comorbid conditions. PAST MEDICAL HISTORY: Morbid obesity, diabetes mellitus type 2, hypertension, DVT x2, hyperlipidemia, depression, GERD, neuropathic pain, asthma, seasonal allergies. PAST SURGICAL HISTORY: Right shoulder surgery, D and C, right-sided lumpectomy , sinus surgery x4, endometrial biopsy, x2, umbilical hernia repair. MEDICATIONS: 1. Maryam 100 mg p.o. daily. 2. Bupropion SR 150 mg p.o. daily. 3. Atorvastatin 10 mg p.o. daily. 4. Albuterol 2 puffs inhalation q.4 hours as needed. 5. Omeprazole 1 cap p.o. daily. 4. Symbicort 80/4.5 one puff inhalation b.i.d. as needed. 5. Ferrous sulfate 1 tab p.o. daily. 6. Vitamin C 500 mg p.o. t.i.d. 7. Metoprolol succinate 25 mg p.o. daily. 8. Metformin 1000 mg 1 tab p.o. b.i.d. 9. Hyzaar 112.5 one tab p.o. daily. 10. Fluoxetine 30 mg p.o. daily. 11. [place] 5/325 one tab p.o. q.6 hours as needed. 12. Zofran ODT 4 mg p.o. q.6 hours as needed. 13. Eliquis 5 mg p.o. b.i.d. 14. Trulicity, unknown dose. ALLERGIES: TETRACYCLINE, LOVENOX, TOMATO, SHELLFISH, LATEX, WHEAT, SOY, and ENVIRONMENTAL. FAMILY HISTORY: The patient's mother had dementia, at age of 94, had a DVT. The patient has a brother and a sister with DVT. The patient's brother also has gout. The patient has a sister, who had lung cancer, for which she needed lobectomy. The patient's father of lymphoma and had Parkinson's disease. SOCIAL HISTORY: The patient smoked very briefly when she was much younger. The patient denies alcohol abuse/denies illicit drug use. 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 The patient is , has 2 biological children and 2 step children. The patient's surrogate decision maker will be her , Preston Ordonez. REVIEW OF SYSTEMS: A 14-point review of systems reviewed and is negative except as above in the HPI. PHYSICAL EXAM: General: The patient is a 63-year-old female who appears stated age and sitting comfortably in bed, in no distress. Vital Signs: Temperature 101.7 rectally, heart rate 100, oxygen saturation 91% on room air, blood pressure 130/79. HEENT: Head: Normocephalic, atraumatic. Sclerae anicteric. No conjunctival injection. Nasal mucosa is dry. Oral mucosa dry. No pharyngeal erythema, discharge, or exudate. Neck: Supple, nontender. No lymphadenopathy. No carotid bruits auscultated. No JVD. Cardiac: Tachycardic. No clicks, murmurs, gallops, or rubs. Pulses are 2+ in the bilateral dorsalis pedis, posterior tibialis, and radial areas. No bilateral calf tenderness noted. Changes consistent with chronic venous stasis. Respiratory: Clear to auscultation bilaterally. No wheezes or rhonchi. Good air exchange bilaterally. Abdomen: Soft, exquisitely tender to palpation in the right upper quadrant. Positive Nuñez sign. Bowel sounds present in all 4 quadrants. No hepatosplenomegaly to limited exam. No abdominal bruits auscultated. No hepatojugular reflux, again limited exam. Genitourinary: No suprapubic or CVA tenderness. Skin: Clean, dry, and intact. No rash except for venous stasis changes. Neuro: Cranial nerves II through XII are intact. Alert and oriented x3. Psychiatric: Pleasant and cooperative. DIAGNOSTIC STUDIES/LAB DATA: Today white blood cell count 4.8, hemoglobin 12.1 , platelet count 236. Sodium 135, potassium 3.5, chloride 99, carbon dioxide 26 , anion gap 10, BUN 10, creatinine 0.79, glucose 185, lactic acid 2.4, calcium 8.8. Bilirubin 0.6, AST 16, ALT 15, alkaline phosphatase 112, CRP 42.93, protein 7.2, albumin 3.9, globulin 3.4, amylase 29, lipase 10. Studies: None. From ED stay from yesterday, chest x-ray read as no acute cardiopulmonary abnormality. EKG shows normal sinus rhythm, rate of 73, QTc of 443, no ST segment elevation or depression, T inversions only in lead III. No signs of hypertrophy or enlargement compared to previous exam. There are no significant changes. Gallbladder ultrasound read as cholelithiasis without evidence for pathologic biliary dilation, acute inflammatory changes. There is a hypoechoic, well circumscribed lesion in posterior margin of the left lobe of the liver that appears corresponding hemangioma on 11/24/13 CT of the abdomen and pelvis. ASSESSMENT AND PLAN: Impression: Ms. Ordonez is a 63-year-old female with past medical history significant diabetes, hypertension, provoked deep vein thrombosis x2, and asthma, who presents to the emergency department with 2 days of pain consistent with acute cholecystitis, who will be admitted to the surgical service for consideration of cholecystectomy, and medical management of her sepsis. 1. Acute cholecystitis. The patient has signs and symptoms consistent with acute cholecystis, very positive Nuñez sign, cholelithiasis on gallbladder ultrasound. The patient has no other signs of acute intraabdominal pathology to explain her symptomatology. The patient has no LFT abnormality consistent with choledocholithiasis. No jaundice associated with acute cholangitis. The patient does have fever, elevated white blood cell count, elevated lactic acid, and tachycardia consistent with sepsis. The patient received her 30 ml/kg bolus while in the emergency department, continued on normal saline 100 mL and hour. The patient has an RCRI of 0, indicating a 3.9% risk of , GA, or cardiac arrest. The patient is a low risk for moderate surgery. The patient has a good functional capacity greater than 4 METS. 2. Repeat lactic acid drawn. The patient does meet criteria for severe sepsis. 3. Diabetes mellitus type 2. The patient has an elevated glucose while in emergency department. The patient is on Trulicity and metformin at home. These will be held while the patient is in the hospital because of risk for acute kidney injury with sepsis and upcoming anticipated surgery, patient will be controlled on sliding scale insulin while she is not taking in very much by mouth. 4. Hypertension. The patient's lisinopril and hydrochlorothiazide will be held. The patient's Toprol will be held perioperatively. 5. Deep vein thrombosis x2. The patient has not had her Eliquis since the morning of 10/17/18 and it is unclear how much of this was absorbed as she vomited very soon thereafter. The patient has been planned to have surgery in the morning based on duration of time from her last dose of Eliquis. The patient has no active signs of deep vein thrombosis. 6. Asthma. The patient will be continued on her home inhalers and have DuoNebs as needed. 7. DVT prophylaxis. The patient will have 1 shot of heparin now. The patient will have SCDs, pending surgery in the morning. 8. Disposition per General Surgery. 9. FEN. The patent will have clear liquid diet, n.p.o. after midnight, and fluids as above. TIME SPENT: Approximately 60 minutes spent on this consultation, 30 of which was spent in [id number] with the patient obtaining history and physical and discussion of treatment plan. Plan was discussed with my attending, Dr. Debra Pierre, and she is in agreement. Thank you very much for this consultation. We will continue follow along with you. MALI SULTANA [id number]/[facility] #: [id number] [place]
[2018-10-19] MEDS: Morphine INJ* 2 MG/ML 1 ML SYRINGE (TWO MG - NEW SYRINGE VERSION) IV PRN ×3 (03:44→09:56)
[2018-10-19 05:13] LABS: ABS Eosinophils 0.4 10^3/ul (0-0.6); ABS Monocytes 1.2 10^3/ul (0-0.8); Hematocrit 34 % (35-47); Hemoglobin 10.8 g/dL (12.0-16.0); Mean Corpuscular HGB Conc 32 g/dL (31-36); Mean Corpuscular Hemoglobin 25 pg (27-31); Mean Corpuscular Volume 78 fL (80-97); Mean Platelet Volume 7.8 fL (7.4-10.4); Platelet Count 193 10^3/uL (150-450); Red Blood Count 4.35 10^6 /uL (3.70-4.87); Red Cell Distribution Width 16 % (10.5-15); White Blood Count 12.6 10^3/uL (3.5-10.8)
[2018-10-19 05:38] LABS: Albumin 3.2 g/dL (3.2-5.2); BUN/Creatinine Ratio 10.6 (8-20); Calcium 8.1 mg/dL (8.6-10.3); EGFR African American 81.5 (>60); EGFR Non-African American 67.3 (>60); Globulin 3.3 g/dL (2-4); Magnesium 1.7 mg/dL (1.9-2.7); Potassium 3.3 mmol/L (3.5-5.0); Total Bilirubin 0.7 mg/dL (0.2-1.0); Total Protein 6.5 g/dL (6.4-8.9)
[2018-10-19] MEDS ORDERED: Lactated Ringers 1000 ML Bag* 1,000 ML IV SCH (06:00)
[2018-10-19] MEDS: Acetaminophen TAB* 325 MG PO PRN (06:03)
[2018-10-19] MEDS: ZOSYN 3.375 GM Q8H per EXTENDED INFUSION IVPB SCH ×6 (06:04→21:45)
[2018-10-19] MEDS: Insulin LISPRO* 1 UNITS UNIT SUBCUT SCH ×4 (08:34→21:18)
[2018-10-19] MEDS ORDERED: FLUoxetine CAP* 20 MG PO SCH (09:00)
[2018-10-19] MEDS: Metoprolol Succinate XL TAB* 25 MG PO SCH (09:55)
[2018-10-19] MEDS: Cetirizine* 10 MG TAB PO SCH (09:55)
[2018-10-19] MEDS: BuPROPion XL* 150 MG TAB.XL PO SCH (09:56)
[2018-10-19] MEDS: Pantoprazole TAB * 40 MG TAB PO SCH (09:56)
[2018-10-19] MEDS: FLUoxetine CAP* 10 MG PO SCH (09:56)
[2018-10-19] MEDS: Ondansetron INJ* 2 MG/ML VIAL IV PRN (10:56)
[2018-10-19] MEDS ORDERED: Bupivacaine 0.25% EPI 200,000* 30 ML SDV ONE ×2 (12:35→16:43)
[2018-10-19] MEDS ORDERED: Propofol* 10 MG/ML 20 ML BTL ONE (13:40)
[2018-10-19] MEDS ORDERED: Lidocaine 2% PF * 5 ML VIAL ONE (13:41)
[2018-10-19] MEDS ORDERED: fentaNYL* 50 MCG/ML 2 ML VIAL (100 MCG VIAL) ONE ×2 (13:41→16:51)
[2018-10-19] MEDS ORDERED: Midazolam* 1 MG/ML 2 ML VIAL (2 MG) ONE ×2 (13:41)
[2018-10-19] MEDS ORDERED: Rocuronium* 10 MG/ML VIAL ONE (14:15)
[2018-10-19] MEDS ORDERED: Bupivacaine 0.5% W/EPI SDV* 30 ML VIAL ONE (14:19)
[2018-10-19] MEDS ORDERED: Bupivacaine 0.25% W/EPI* 10 ML SDV ONE (14:20)
[2018-10-19] MEDS ORDERED: Succinylcholine* 20 MG/ML 10 ML VIAL ONE (14:51)
[2018-10-19] MEDS ORDERED: Phenylephrine 10 MG/ML VIAL* 1 ML VIAL ONE (15:09)
[2018-10-19] MEDS ORDERED: oxyCODONE TAB* 5 MG TAB PO PRN (15:21)
[2018-10-19] MEDS ORDERED: DiMENhydriNATE IV* 50 MG/ML VIAL IV PUSH PRN (15:21)
[2018-10-19] MEDS ORDERED: Dexamethasone IV* 4 MG/ML 1 ML (4 MG) ONE ×2 (15:33→16:42)
[2018-10-19] MEDS ORDERED: Ondansetron INJ* 2 MG/ML VIAL ONE (16:42)
[2018-10-19] MEDS ORDERED: Metoclopramide IV* 5 MG/ML 2 ML VIAL ONE (16:42)
[2018-10-19] MEDS ORDERED: Neostigmine Methylsulfate* 1 MG/ML 10 ML VIAL (1 mg/ml) ONE (16:46)
[2018-10-19] MEDS ORDERED: Glycopyrrolate IV* 0.2 MG/ML 1 ML VIAL ONE (16:46)
--- NOTE | 2018-10-19 16:53 | CONSULT ---
Subjective Date of Service: 10/19/18 Interval History: HD # 2 on 10/19 63 yo F with PMH obesity, NIDDM, HTN, COPD, depression who presented with acute cholecystitis and sepsis Seen in PACU s/p lap donal, with DANIELLE drain in place, operative note reflects sig infection in gallbladder Pt sleeping arousable to voice, VSS. Review of Systems - Measurements Intake and Output: Intake and Output Last 24 Hours 10/17/18 10/18/18 10/19/18 10/20/18 06:59 06:59 06:59 06:59 Intake Total 3416 1256 Output Total 800 400 Balance 2616 856 Weight 262 lb Intake: IV Fluids 2993 1256 ABX - ZOSYN 229 LR 993 NS (0.9%) 927 NS 100ML, Zosyn 3.375G 100 IVPB 103 ABX - ZOSYN 103 Oral 320 0 Output: Urine 800 400 - Review of Systems General Comments: Unable to assess Objective Active Medications: Acetaminophen (Tylenol Tab*) 650 mg PO Q6H PRN PRN Reason: FEVER/PAIN Last Admin: 10/19/18 06:03 Dose: 650 mg Hydrocodone Bitart/Acetaminophen ([place] 5-325 Tab*) 1 tab PO Q6H PRN PRN Reason: PAIN Albuterol/Ipratropium (Duoneb (Albuterol 2.5 Mg/Ipratropium 0.5 Mg)) 1 neb INH Q6H PRN PRN Reason: SOB/WHEEZING Bupropion HCl (Wellbutrin Xl *) 150 mg PO DAILY [facility] Last Admin: 10/19/18 09:56 Dose: 150 mg Cetirizine HCl (Zyrtec*) 10 mg PO QAM [facility]; Protocol Last Admin: 10/19/18 09:55 Dose: 10 mg Dextrose (D50w Syringe 50 Ml*) 12.5 gm IV PUSH .FOR FS < 60 - SS PRN PRN Reason: FS < 60 Dimenhydrinate (Dramamine Iv*) 25 mg IV PUSH ONCE PRN PRN Reason: NAUSEA/VOMITING Fluoxetine HCl (Prozac Cap*) 30 mg PO DAILY [facility] Last Admin: 10/19/18 09:56 Dose: 30 mg Hydromorphone HCl (Dilaudid Inj1s*) 0.2 mg IV Q5M PRN PRN Reason: PAIN - SEVERE Piperacillin Sod/Tazobactam (Sod 3.375 gm/ Sodium Chloride) 100 mls @ 25 mls/ hr IVPB Q8H [facility] Last Admin: 10/19/18 15:30 Dose: Not Given Lactated Ringer's (Lactated Ringers 1000 Ml Bag*) 1,000 mls @ 125 mls/hr IV PER RATE [facility] Last Admin: 10/19/18 10:48 Dose: 125 mls/hr Insulin Human Lispro (Humalog*) 0 units SUBCUT ACHS [facility]; Protocol Last Admin: 10/19/18 13:58 Dose: Not Given Metoprolol Succinate (Toprol Xl Tab*) 25 mg PO DAILY [facility] Last Admin: 10/19/18 09:55 Dose: 25 mg Mometasone Furoate/Formoterol Fumar (Dulera 100/5 Mdi*) 2 puff INH BID PRN PRN Reason: SEE COMMENTS Morphine Sulfate (Morphine Inj (Syringe))*) 2 mg IV Q3H PRN PRN Reason: PAIN Last Admin: 10/19/18 09:56 Dose: 2 mg Ondansetron HCl (Zofran Inj*) 4 mg IV Q6H PRN PRN Reason: NAUSEA Last Admin: 10/19/18 10:56 Dose: 4 mg Oxycodone HCl (Roxycodone Tab*) 5 mg PO ONCE PRN PRN Reason: PAIN - MODERATE Pantoprazole Sodium (Protonix Tab*) 40 mg PO DAILY [facility] Last Admin: 10/19/18 09:56 Dose: 40 mg Pharmacy Consult (Zosyn Per Pharmacy*) 1 note FOLLOW UP .ZOSYN PER PHARMACY [facility] Vital Signs - 8 hr 10/19/18 10/19/18 09:56 11:00 Respiratory 18 14 Rate Oxygen Devices in Use Now: Nasal Cannula Appearance: Obese female resting Eyes: No Scleral Icterus, PERRLA Ears/Nose/Mouth/Throat: NL Teeth, Lips, Gums, Clear Oropharnyx Neck: NL Appearance and Movements; NL JVP, Trachea Midline Respiratory: Symmetrical Chest Expansion and Respiratory Effort, Clear to Auscultation Cardiovascular: NL Sounds; No Murmurs; No JVD, RRR Abdominal: NL Sounds; No Tenderness; No Distention, - - DANIELLE drain in place soft NT ND Extremities: No Edema Skin: No Rash or Ulcers Result Diagrams: 10/19/18 05:02 10/19/18 05:02 Additional Lab and Data: Lab Results 10/18/18 10/18/18 10/18/18 Range/Units 09:54 09:54 09:54 WBC 14.8 H (3.5-10.8) 10^3/uL RBC 4.82 (3.70-4.87) 10^6 /uL Hgb 12.1 (12.0-16.0) g/dL Hct 37 (35-47) % MCV 77 L (80-97) fL MCH 25 L (27-31) pg MCHC 33 (31-36) g/dL RDW 16 H (10.5-15) % Plt Count 236 (150-450) 10^3/uL MPV 7.9 (7.4-10.4) fL Neut % (Auto) 78.5 % Lymph % (Auto) 11.7 % [place] % (Auto) 7.5 % Eos % (Auto) 2.0 % Baso % (Auto) 0.3 % Absolute Neuts (auto) 11.6 H (1.5-7.7) 10^3/ul Absolute Lymphs (auto) 1.7 (1.0-4.8) 10^3/ul Absolute Monos (auto) 1.1 H (0-0.8) 10^3/ul Absolute Eos (auto) 0.3 (0-0.6) 10^3/ul Absolute Basos (auto) 0.0 (0-0.2) 10^3/ul Absolute Nucleated RBC 0.0 10^3/ul Nucleated RBC % 0.0 Sodium 135 (135-145) mmol/L Potassium 3.5 (3.5-5.0) mmol/L Chloride 99 L (101-111) mmol/L Carbon Dioxide 26 (22-32) mmol/L Anion Gap 10 (2-11) mmol/L BUN 10 (6-24) mg/dL Creatinine 0.79 (0.51-0.95) mg/dL Est GFR ( Amer) 88.7 (>60) Est GFR (Non-Af Amer) 73.3 (>60) BUN/Creatinine Ratio 12.7 (8-20) Glucose 185 H (70-100) mg/dL Lactic Acid 2.4 H* (0.5-2.0) mmol/L Calcium 8.8 (8.6-10.3) mg/dL Total Bilirubin 0.60 (0.2-1.0) mg/dL AST 16 (13-39) U/L ALT 15 (7-52) U/L Alkaline Phosphatase 112 H (34-104) U/L C-Reactive Protein 42.93 H (<8.01) mg/L Total Protein 7.2 (6.4-8.9) g/dL Albumin 3.8 (3.2-5.2) g/dL Globulin 3.4 (2-4) g/dL Albumin/Globulin Ratio 1.1 (1-3) Amylase 29 (29-103) U/L Lipase 10 L (11.0-82.0) U/L Microbiology and Other Data: Microbiology 10/18/18 09:54 Aerobic Blood Culture - Preliminary Blood Venous No Growth Day 1 Anaerobic Blood Culture - Preliminary No Growth Day 1 10/18/18 09:55 Aerobic Blood Culture - Preliminary Blood Venous No Growth Day 1 Anaerobic Blood Culture - Preliminary No Growth Day 1 Assessment/Plan - Billing Plan By Medical Problem: 63 yo F with PMH obesity, NIDDM, HTN, COPD, depression who presented with acute cholecystitis and sepsis, s/p Lap donal POD #0 1. Sepsis: from intrabdominal source s/p donal, continue abx for now 2. HTN: Holding home meds with exception of [place]op 3. COPD: Nebs, home inhalers 4. Pain control per surgery, hold toradol per surgery 5. Anxiety: Continue home meds VTE PPX: Restart 10/20 Diet: Per surgery Code Status: Full Thank you for this consult, medicine will follow with you
--- NOTE | 2018-10-19 17:05 | BRIEFOPN ---
Brief Operative Note - Surgery Procedures: Procedures OPERATIVE REPORT Pre-op: Acute calculous cholecystitis Post-Op: Same, hydrops of the gallbladdder Procedure: Laparoscopic cholecystectomy Surgeon: MD Blas Asst: Quyen Hopkins MD Anes: general with local, Dr. Galeas IVF:1 liter of crystalloid EBL:min Specimen: Gallbladder Drain: #10 DANIELLE in RUQ Wound: 4 To PACU
[2018-10-19] MEDS ORDERED: HYDROmorphone INJ1* 1 MG/ML SYRINGE ONE (17:30)
[2018-10-19] MEDS: HYDROmorphone INJ1* 1 MG/ML SYRINGE IV PRN ×2 (17:31→17:38)
[2018-10-19] MEDS ORDERED: DiMENhydriNATE IV* 50 MG/ML VIAL ONE (17:39)
[2018-10-19] MEDS: NS 0.9% 1000 ML** 1,000 ML IV SCH (20:17)
[2018-10-19] MEDS: Potassium Chlor TAB* 20 MEQ TAB.ER PO SCH (21:17)
[2018-10-19] MEDS: Morphine 4 MG/ML VIAL (1 ml) 4 MG/ML VIAL IV PRN (21:19)
--- NOTE | 2018-10-19 23:09 | OP ---
CC: [facility]; Dr. Jessica Adhikari.* DATE OF OPERATION: 10/19/18 - ROOM #346 DATE OF : 53 SURGEON: Nelson Odonnell MD SALES ORDER ADMINISTRATOR: Toni Hopkins MD ANESTHESIOLOGIST: Dr. Galeas. ANESTHESIA: Local with general. PRE-OP DIAGNOSIS: Acute calculous cholecystitis. POST-OP DIAGNOSES: 1. Acute calculous cholecystitis. 2. Hydrops of the gallbladder. OPERATIVE PROCEDURE: Laparoscopic cholecystectomy. ESTIMATED BLOOD LOSS: Not recorded, less than 50 cc. IV FLUID: 1 L of crystalloid. SPECIMEN: Gallbladder. WOUND CLASSIFICATION: 4. DRAINS: A #10 DANIELLE drain in the right upper quadrant. COMPLICATIONS: None. FINDINGS: The patient had marked acute calculous cholecystitis with a very thickened gallbladder wall with edema and hydrops of the gallbladder, which was also markedly distended. Liver appeared to be unremarkable. BRIEF HISTORY: Ms. Nayeli Ordonez is a 63-year-old woman who presented to the emergency room with 24 to 36 hours of worsening right upper quadrant abdominal pain. An ultrasound confirmed gallstones without gallbladder wall thickening. She had a mild elevation in her white blood cell count. She was admitted with a diagnosis of acute calculous cholecystitis. Due to the fact that she was on Eliquis and had not taken her dose in the last 24 hours, medical consultation was obtained for the treatment of her hypercoagulable state. The Eliquis has been held for another 24 hours and she was on Lovenox, but this has been discontinued prior to surgery. DESCRIPTION OF PROCEDURE: Written informed consent was obtained, the abdomen was marked with indelible ink, and preoperative antibiotics were administered. The patient was taken to the operating room and placed in the supine position. Sequential compression devices and a warming blanket were applied. General anesthesia was administered and the abdomen was prepped and draped in usual sterile fashion. Time-out verification was completed. A 0.25% Marcaine was infiltrated in the left upper abdomen and in the subcostal area, a small transverse incision was made. A 5-mm Optiview catheter using a 5- mm 0 degree scope was then passed under direct vision to the abdominal wall and into the peritoneum without difficulty. The abdomen was insufflated to 15 mmHg. A second 5-mm port was placed supraumbilically at the midline. Careful evaluation at the site of the Optiview entrance of the peritoneum, there appeared to be no evidence of hemorrhage or other trauma. A 12-mm port was placed in the epigastric port and two 5-mm ports were placed in the right side of the abdominal wall. The patient was placed in reverse Trendelenburg and an orogastric tube was placed. Liver appeared to be unremarkable. The gallbladder was identified. It was markedly distended with a very thick edematous maher, although no evidence of gangrene. This was consistent with severe acute calculous cholecystitis. On grasping the gallbladder, I did enter this inadvertently and we drained the gallbladder off copious amount of white bile. Next, with care, the gallbladder was elevated above the liver bed and through the significantly thickened and edematous fluid, using a combination of blunt and sharp dissection, was able to sweep the inflamed peritoneum down to expose the infundibulum of the gallbladder. The cystic artery was identified as it entered the gallbladder and subsequently took a significant portion of the inferior part of the gallbladder off the liver bed using a critical view technique to assure myself the structure. In the infundibulum, the gallbladder did not appear to have stones; however, the area between the infundibulum, the gallbladder, and the cystic duct, it still appeared to be somewhat dilated despite trying to milk stones and at this point, I felt that I was not able to safely dissect any further down under the cystic duct, but after assuring myself of this anatomy, i.e., the junction between the cystic duct and the infundibulum of the gallbladder, an endo CORNELL kelley load of a 45 mm stapler was then used to fire across the site to amputate the gallbladder. The cystic duct was then doubly clipped and divided. The remainder of the gallbladder was then removed from the liver bed using a combination of blunt cautery dissection and the gallbladder was then placed in an EndoCatch bag. The right upper quadrant was then irrigated thoroughly and hemostasis was assured. A #10 DANIELLE drain was then placed in the right upper quadrant and exited through the lateral 5-mm stab site. It was sutured to the skin with a 3-0 Prolene suture. Gallbladder was then removed from the epigastric port. It was necessary to stretch this somewhat with a Tammie clamp and I removed individual stones with the stone forceps from the gallbladder and then subsequently we were able to successfully able to remove the gallbladder from the abdominal cavity. All ports were removed under direct vision of the camera. All incisions were then infiltrated with 0.25% Marcaine, mixed with 1% lidocaine, and closed with interrupted 4-0 subcuticular suture. Steri-Strips were applied. A dry drain sponge was placed. The patient tolerated the procedure well and was taken to recovery room in stable condition. [id number]/[facility] #: [id number] MARYLIN
[2018-10-20] MEDS: oxyCODONE/Acetamin 5/325 MG* TAB PO PRN ×6 (01:49→23:15)
[2018-10-20] MEDS: NS 0.9% 1000 ML** 1,000 ML IV SCH ×2 (05:56→16:29)
[2018-10-20] MEDS: ZOSYN 3.375 GM Q8H per EXTENDED INFUSION IVPB SCH ×6 (05:57→21:48)
[2018-10-20 06:46] LABS: ABS Lymphocytes 1.6 10^3/ul (1.0-4.8); ABS Monocytes 0.8 10^3/ul (0-0.8); ABS Neutrophils 9.6 10^3/ul (1.5-7.7); Hematocrit 31 % (35-47); Hemoglobin 10.2 g/dL (12.0-16.0); Lymphocyte % 13.2 %; Mean Corpuscular HGB Conc 33 g/dL (31-36); Mean Corpuscular Hemoglobin 25 pg (27-31); Mean Corpuscular Volume 77 fL (80-97); Platelet Count 176 10^3/uL (150-450); Red Blood Count 4.03 10^6 /uL (3.70-4.87); Red Cell Distribution Width 16 % (10.5-15)
[2018-10-20 07:07] LABS: Albumin 2.9 g/dL (3.2-5.2); Albumin/Globulin Ratio 0.9 (1-3); BUN/Creatinine Ratio 10.7 (8-20); Calcium 7.6 mg/dL (8.6-10.3); EGFR African American 94.1 (>60); EGFR Non-African American 77.8 (>60); Globulin 3.1 g/dL (2-4); Indirect Bilirubin 0.3 mg/dL (0.3-1.0); Potassium 3.6 mmol/L (3.5-5.0); Total Bilirubin 0.4 mg/dL (0.2-1.0)
[2018-10-20] MEDS: Metoprolol Succinate XL TAB* 25 MG PO SCH (08:12)
[2018-10-20] MEDS: BuPROPion XL* 150 MG TAB.XL PO SCH (08:12)
[2018-10-20] MEDS: Pantoprazole TAB * 40 MG TAB PO SCH (08:12)
[2018-10-20] MEDS: Cetirizine* 10 MG TAB PO SCH (08:12)
[2018-10-20] MEDS: FLUoxetine CAP* 10 MG PO SCH (08:13)
[2018-10-20] MEDS: Potassium Chlor TAB* 20 MEQ TAB.ER PO SCH ×2 (08:13→20:01)
[2018-10-20] MEDS: Insulin LISPRO* 1 UNITS UNIT SUBCUT SCH ×4 (10:05→21:13)
[2018-10-20] MEDS: Morphine 4 MG/ML VIAL (1 ml) 4 MG/ML VIAL IV PRN ×2 (11:33→15:32)
--- NOTE | 2018-10-20 11:46 | PN ---
Progress Note - Progress Note Date of Service: 10/20/18 SOAP: Subjective:pod#1 s/p lap donal tolerating clears,not hungry for more;reports RUQ pain with deep breath and at rest at present 12/22;no n/v;walked in halls this morning;no flatus yet [] Objective: Vital Signs Temp 98.0 F 10/20/18 11:15 Pulse 69 10/20/18 11:15 Resp 16 10/20/18 11:33 BP 136/70 10/20/18 11:15 Pulse Ox 95 10/20/18 11:15 Intake & Output 10/19/18 10/20/18 10/20/18 18:59 06:59 18:59 Intake Total 3088 1908 Output Total 560 820 Balance 2528 1088 Intake: IV Fluids 3088 1308 ABX - ZOSYN 229 105 LR 1832 261 NS (0.9%) 927 942 NS 100ML, Zosyn 3.375G 100 Oral 0 600 Output: DANIELLE #1 160 170 Urine 400 650 Other: # Bowel Movements 0 Laboratory Last Values WBC 12.0 10^3/uL (3.5-10.8) H 10/20/18 06:30 RBC 4.03 10^6 /uL (3.70-4.87) 10/20/18 06:30 Hgb 10.2 g/dL (12.0-16.0) L 10/20/18 06:30 Hct 31 % (35-47) L 10/20/18 06:30 MCV 77 fL (80-97) L 10/20/18 06:30 MCH 25 pg (27-31) L 10/20/18 06:30 MCHC 33 g/dL (31-36) 10/20/18 06:30 RDW 16 % (10.5-15) H 10/20/18 06:30 Plt Count 176 10^3/uL (150-450) 10/20/18 06:30 MPV 8.0 fL (7.4-10.4) 10/20/18 06:30 Neut % (Auto) 79.8 % 10/20/18 06:30 Lymph % (Auto) 13.2 % 10/20/18 06:30 [place] % (Auto) 6.6 % 10/20/18 06:30 Eos % (Auto) 0.0 % 10/20/18 06:30 Baso % (Auto) 0.4 % 10/20/18 06:30 Absolute Neuts (auto) 9.6 10^3/ul (1.5-7.7) H 10/20/18 06:30 Absolute Lymphs (auto) 1.6 10^3/ul (1.0-4.8) 10/20/18 06:30 Absolute Monos (auto) 0.8 10^3/ul (0-0.8) 10/20/18 06:30 Absolute Eos (auto) 0.0 10^3/ul (0-0.6) 10/20/18 06:30 Absolute Basos (auto) 0.0 10^3/ul (0-0.2) 10/20/18 06:30 Absolute Nucleated RBC 0.0 10^3/ul 10/20/18 06:30 Nucleated RBC % 0.0 10/20/18 06:30 Sodium 140 mmol/L (135-145) 10/20/18 06:30 Potassium 3.6 mmol/L (3.5-5.0) 10/20/18 06:30 Chloride 107 mmol/L (101-111) 10/20/18 06:30 Carbon Dioxide 25 mmol/L (22-32) 10/20/18 06:30 Anion Gap 8 mmol/L (2-11) 10/20/18 06:30 BUN 8 mg/dL (6-24) 10/20/18 06:30 Creatinine 0.75 mg/dL (0.51-0.95) 10/20/18 06:30 Est GFR ( Amer) 94.1 (>60) 10/20/18 06:30 Est GFR (Non-Af Amer) 77.8 (>60) 10/20/18 06:30 BUN/Creatinine Ratio 10.7 (8-20) 10/20/18 06:30 Glucose 153 mg/dL (70-100) H 10/20/18 06:30 POC Glucose (mg/dL) 142 mg/dL (70-100) H 10/20/18 08:17 Lactic Acid 1.1 mmol/L (0.5-2.0) 10/18/18 12:51 Calcium 7.6 mg/dL (8.6-10.3) L 10/20/18 06:30 Magnesium 1.7 mg/dL (1.9-2.7) L 10/19/18 05:02 Total Bilirubin 0.40 mg/dL (0.2-1.0) 10/20/18 06:30 Direct Bilirubin 0.10 mg/dL (0.03-0.18) 10/20/18 06:30 Indirect Bilirubin 0.3 mg/dL (0.3-1.0) 10/20/18 06:30 AST 35 U/L (13-39) 10/20/18 06:30 ALT 33 U/L (7-52) 10/20/18 06:30 Alkaline Phosphatase 82 U/L (34-104) 10/20/18 06:30 C-Reactive Protein 42.93 mg/L (<8.01) H 10/18/18 09:54 Total Protein 6.0 g/dL (6.4-8.9) L 10/20/18 06:30 Albumin 2.9 g/dL (3.2-5.2) L 10/20/18 06:30 Globulin 3.1 g/dL (2-4) 10/20/18 06:30 Albumin/Globulin Ratio 0.9 (1-3) L 10/20/18 06:30 Amylase 29 U/L (29-103) 10/18/18 09:54 Lipase 10 U/L (11.0-82.0) L 10/18/18 09:54 lungs:clear bilat;heart:RRR,no murmur;abd:+bs,obese,lap incisions intact with steristrips,no erythema,appropriate tenderness;DANIELLE with serosang drainage;ext: nontender calves,SCDS on [] Assessment:stable,requiring MS04 for pain management at present [] Plan:advance diet slowly ambulate continue IV abx reassess pain control later today update Dr Odonnell,?resume Ana,?SQ Heparin []
[2018-10-20] MEDS: Heparin VIAL(*) 5000 UNITS/ML VIAL (FIVE THOUSAND) SUBCUT SCH ×2 (14:04→21:13)
[2018-10-20] MEDS ORDERED: Morphine INJ* 2 MG/ML 1 ML SYRINGE (TWO MG - NEW SYRINGE VERSION) IV PRN (19:00)
--- NOTE | 2018-10-20 20:14 | PN ---
Subjective Date of Service: 10/20/18 Interval History: Awake, tolerating po well. pain being controlled with IV Morphine and or oxycodone. no nausea or vomit. she reports no BM as of yet Past Medical History: Unchanged from Admission Objective Active Medications: Acetaminophen (Tylenol Tab*) 650 mg PO Q6H PRN PRN Reason: FEVER/PAIN Last Admin: 10/19/18 06:03 Dose: 650 mg Albuterol/Ipratropium (Duoneb (Albuterol 2.5 Mg/Ipratropium 0.5 Mg)) 1 neb INH Q6H PRN PRN Reason: SOB/WHEEZING Bupropion HCl (Wellbutrin Xl *) 150 mg PO DAILY [facility] Last Admin: 10/20/18 08:12 Dose: 150 mg Cetirizine HCl (Zyrtec*) 10 mg PO QAM [facility]; Protocol Last Admin: 10/20/18 08:12 Dose: 10 mg Dextrose (D50w Syringe 50 Ml*) 12.5 gm IV PUSH .FOR FS < 60 - SS PRN PRN Reason: FS < 60 Fluoxetine HCl (Prozac Cap*) 30 mg PO DAILY [facility] Last Admin: 10/20/18 08:13 Dose: 30 mg Heparin Sodium (Porcine) (Heparin Vial(*)) 5,000 units SUBCUT Q8HR [facility] Last Admin: 10/20/18 14:04 Dose: 5,000 units Piperacillin Sod/Tazobactam (Sod 3.375 gm/ Sodium Chloride) 100 mls @ 25 mls/ hr IVPB Q8H [facility] Last Admin: 10/20/18 14:03 Dose: 25 mls/hr Sodium Chloride (Ns 0.9% 1000 Ml) 1,000 mls @ 100 mls/hr IV PER RATE [facility] Last Admin: 10/20/18 16:29 Dose: 100 mls/hr Insulin Human Lispro (Humalog*) 0 units SUBCUT ACHS [facility]; Protocol Last Admin: 10/20/18 18:25 Dose: 2 units Metoprolol Succinate (Toprol Xl Tab*) 25 mg PO DAILY [facility] Last Admin: 10/20/18 08:12 Dose: 25 mg Mometasone Furoate/Formoterol Fumar (Dulera 100/5 Mdi*) 2 puff INH BID PRN PRN Reason: SEE COMMENTS Morphine Sulfate (Morphine Inj (Syringe))*) 2 mg IV Q1H PRN PRN Reason: SEVERE PAIN Last Admin: 10/20/18 18:24 Dose: 2 mg Ondansetron HCl (Zofran Inj*) 4 mg IV Q6H PRN PRN Reason: NAUSEA Last Admin: 10/19/18 10:56 Dose: 4 mg Oxycodone/Acetaminophen (Percocet 5/325 Tab*) 1 tab PO Q3H PRN PRN Reason: MODERATE PAIN Last Admin: 10/20/18 20:01 Dose: 1 tab Pantoprazole Sodium (Protonix Tab*) 40 mg PO DAILY [facility] Last Admin: 10/20/18 08:12 Dose: 40 mg Pharmacy Consult (Zosyn Per Pharmacy*) 1 note FOLLOW UP .ZOSYN PER PHARMACY [facility] Potassium Chloride (Klor Con Er Tab*) 20 meq PO BID [facility] Last Admin: 10/20/18 20:01 Dose: 20 meq Vital Signs - 8 hr 10/20/18 10/20/18 10/20/18 12:35 14:03 15:32 Temperature Pulse Rate Respiratory 16 16 16 Rate Blood Pressure (mmHg) O2 Sat by Pulse Oximetry 10/20/18 10/20/18 10/20/18 16:10 16:30 17:00 Temperature 97.9 F Pulse Rate 78 Respiratory 14 16 16 Rate Blood Pressure 123/55 (mmHg) O2 Sat by Pulse 97 Oximetry 10/20/18 10/20/18 10/20/18 18:24 19:40 20:00 Temperature 98.1 F Pulse Rate 75 Respiratory 16 16 18 Rate Blood Pressure 111/64 (mmHg) O2 Sat by Pulse 98 Oximetry 10/20/18 20:01 Temperature Pulse Rate Respiratory 18 Rate Blood Pressure (mmHg) O2 Sat by Pulse Oximetry Oxygen Devices in Use Now: None Appearance: awake,. in chair resting Ears/Nose/Mouth/Throat: NL Teeth, Lips, Gums, Mucous Membranes Moist Respiratory: Symmetrical Chest Expansion and Respiratory Effort, Clear to Auscultation Cardiovascular: NL Sounds; No Murmurs; No JVD, RRR Abdominal: - - RUQ DANIELLE drain with yellow fluid drain. mild periincisional tendernss. Bowel sounds present Result Diagrams: 10/20/18 06:30 10/20/18 06:30 Additional Lab and Data: Lab Results 0510/18/18 10/18/18 Range/Units 09:54 09:54 09:54 WBC 14.8 H (3.5-10.8) 10^3/uL RBC 4.82 (3.70-4.87) 10^6 /uL Hgb 12.1 (12.0-16.0) g/dL Hct 37 (35-47) % MCV 77 L (80-97) fL MCH 25 L (27-31) pg MCHC 33 (31-36) g/dL RDW 16 H (10.5-15) % Plt Count 236 (150-450) 10^3/uL MPV 7.9 (7.4-10.4) fL Neut % (Auto) 78.5 % Lymph % (Auto) 11.7 % [place] % (Auto) 7.5 % Eos % (Auto) 2.0 % Baso % (Auto) 0.3 % Absolute Neuts (auto) 11.6 H (1.5-7.7) 10^3/ul Absolute Lymphs (auto) 1.7 (1.0-4.8) 10^3/ul Absolute Monos (auto) 1.1 H (0-0.8) 10^3/ul Absolute Eos (auto) 0.3 (0-0.6) 10^3/ul Absolute Basos (auto) 0.0 (0-0.2) 10^3/ul Absolute Nucleated RBC 0.0 10^3/ul Nucleated RBC % 0.0 Sodium 135 (135-145) mmol/L Potassium 3.5 (3.5-5.0) mmol/L Chloride 99 L (101-111) mmol/L Carbon Dioxide 26 (22-32) mmol/L Anion Gap 10 (2-11) mmol/L BUN 10 (6-24) mg/dL Creatinine 0.79 (0.51-0.95) mg/dL Est GFR ( Amer) 88.7 (>60) Est GFR (Non-Af Amer) 73.3 (>60) BUN/Creatinine Ratio 12.7 (8-20) Glucose 185 H (70-100) mg/dL Lactic Acid 2.4 H* (0.5-2.0) mmol/L Calcium 8.8 (8.6-10.3) mg/dL Total Bilirubin 0.60 (0.2-1.0) mg/dL AST 16 (13-39) U/L ALT 15 (7-52) U/L Alkaline Phosphatase 112 H (34-104) U/L C-Reactive Protein 42.93 H (<8.01) mg/L Total Protein 7.2 (6.4-8.9) g/dL Albumin 3.8 (3.2-5.2) g/dL Globulin 3.4 (2-4) g/dL Albumin/Globulin Ratio 1.1 (1-3) Amylase 29 (29-103) U/L Lipase 10 L (11.0-82.0) U/L Microbiology and Other Data: Microbiology 10/18/18 09:54 Aerobic Blood Culture - Preliminary Blood Venous No Growth Day 1 Anaerobic Blood Culture - Preliminary No Growth Day 1 10/18/18 09:55 Aerobic Blood Culture - Preliminary Blood Venous No Growth Day 1 Anaerobic Blood Culture - Preliminary No Growth Day 1 Assess/Plan/Problems-Billing Plan By Medical Problem: 63 yo F with PMH obesity, NIDDM, HTN, COPD, depression who presented with acute cholecystitis and sepsis, s/p Lap donal POD #0 1. Sepsis: from intra- bdominal source s/p donal day # 2, continue abx for now 2. HTN: Holding home meds with exception of Metoprolol 3. COPD: Nebs, home inhalers 4. Pain control per surgery, 5. DM - Insulin wiht SS 6. Anxiety: Continue home meds VTE PPX: Restart 10/20 Diet: Per surgery Code Status: Full Thank you for this consult, medicine will follow with you prn
[2018-10-21] MEDS: oxyCODONE/Acetamin 5/325 MG* TAB PO PRN ×6 (02:37→21:38)
[2018-10-21] MEDS: NS 0.9% 1000 ML** 1,000 ML IV SCH (02:38)
[2018-10-21] MEDS ORDERED: NS 0.9% 100 ML* 100 ML ONE (05:41)
[2018-10-21] MEDS: Heparin VIAL(*) 5000 UNITS/ML VIAL (FIVE THOUSAND) SUBCUT SCH ×3 (05:43→21:40)
[2018-10-21] MEDS: ZOSYN 3.375 GM Q8H per EXTENDED INFUSION IVPB SCH ×6 (05:44→21:43)
[2018-10-21 07:32] LABS: BUN/Creatinine Ratio 9.5 (8-20); Calcium 7.7 mg/dL (8.6-10.3); EGFR African American 82.6 (>60); EGFR Non-African American 68.3 (>60); Magnesium 1.7 mg/dL (1.9-2.7); Phosphorus 1.9 mg/dL (2.5-5.0); Potassium 3.3 mmol/L (3.5-5.0)
[2018-10-21] MEDS: Insulin LISPRO* 1 UNITS UNIT SUBCUT SCH ×4 (07:40→21:39)
[2018-10-21] MEDS: Potassium Chlor TAB* 20 MEQ TAB.ER PO SCH ×2 (09:16→21:38)
[2018-10-21] MEDS: Cetirizine* 10 MG TAB PO SCH (09:16)
[2018-10-21] MEDS: Pantoprazole TAB * 40 MG TAB PO SCH (09:16)
[2018-10-21] MEDS: FLUoxetine CAP* 10 MG PO SCH (09:16)
[2018-10-21] MEDS: Metoprolol Succinate XL TAB* 25 MG PO SCH (09:17)
[2018-10-21] MEDS: BuPROPion XL* 150 MG TAB.XL PO SCH (09:17)
[2018-10-21] MEDS ORDERED: Magnesium Sulfate 2 GM IV* 2 GM/50 ML BAG IVPB ONE (09:31)
--- NOTE | 2018-10-21 09:40 | OP ---
Operative Report - Blank - Operative Report Date of Operation: 10/21/18 Note: Surgery Progress S: POD #2. Improving. Less pain. Shine po well. Ambulating. Current Medications Acetaminophen (Tylenol Tab*) 650 mg PO Q6H PRN PRN Reason: FEVER/PAIN Last Admin: 10/19/18 06:03 Dose: 650 mg Albuterol/Ipratropium (Duoneb (Albuterol 2.5 Mg/Ipratropium 0.5 Mg)) 1 neb INH Q6H PRN PRN Reason: SOB/WHEEZING Bupropion HCl (Wellbutrin Xl *) 150 mg PO DAILY [facility] Last Admin: 10/21/18 09:17 Dose: 150 mg Cetirizine HCl (Zyrtec*) 10 mg PO QAM [facility]; Protocol Last Admin: 10/21/18 09:16 Dose: 10 mg Dextrose (D50w Syringe 50 Ml*) 12.5 gm IV PUSH .FOR FS < 60 - SS PRN PRN Reason: FS < 60 Fluoxetine HCl (Prozac Cap*) 30 mg PO DAILY [facility] Last Admin: 10/21/18 09:16 Dose: 30 mg Heparin Sodium (Porcine) (Heparin Vial(*)) 5,000 units SUBCUT Q8HR [facility] Last Admin: 10/21/18 05:43 Dose: 5,000 units Piperacillin Sod/Tazobactam (Sod 3.375 gm/ Sodium Chloride) 100 mls @ 25 mls/ hr IVPB Q8H [facility] Last Admin: 10/21/18 05:44 Dose: 25 mls/hr Sodium Chloride (Ns 0.9% 1000 Ml) 1,000 mls @ 100 mls/hr IV PER RATE [facility] Last Admin: 10/21/18 02:38 Dose: 100 mls/hr Magnesium Sulfate (Magnesium Sulfate 2 Gm Iv*) 2 gm in 50 mls @ 50 mls/hr IVPB ONCE ONE Stop: 10/21/18 10:30 Insulin Human Lispro (Humalog*) 0 units SUBCUT ACHS [facility]; Protocol Last Admin: 10/21/18 07:40 Dose: Not Given Metformin HCl (Glucophage*) mg PO BID [facility] Metoprolol Succinate (Toprol Xl Tab*) 25 mg PO DAILY [facility] Last Admin: 10/21/18 09:17 Dose: 25 mg Mometasone Furoate/Formoterol Fumar (Dulera 100/5 Mdi*) 2 puff INH BID PRN PRN Reason: SEE COMMENTS Morphine Sulfate (Morphine Inj (Syringe))*) 2 mg IV Q1H PRN PRN Reason: SEVERE PAIN Last Admin: 10/20/18 18:24 Dose: 2 mg Ondansetron HCl (Zofran Inj*) 4 mg IV Q6H PRN PRN Reason: NAUSEA Last Admin: 10/19/18 10:56 Dose: 4 mg Oxycodone/Acetaminophen (Percocet 5/325 Tab*) 1 tab PO Q3H PRN PRN Reason: MODERATE PAIN Last Admin: 10/21/18 09:16 Dose: 1 tab Pantoprazole Sodium (Protonix Tab*) 40 mg PO DAILY [facility] Last Admin: 10/21/18 09:16 Dose: 40 mg Pharmacy Consult (Zosyn Per Pharmacy*) 1 note FOLLOW UP .ZOSYN PER PHARMACY [facility] Potassium Chloride (Klor Con Er Tab*) 20 meq PO BID [facility] Last Admin: 10/21/18 09:16 Dose: 20 meq O: Vital Signs - 8 hr 10/21/18 10/21/18 10/21/18 02:37 03:26 05:44 Temperature 98.2 F Pulse Rate 77 Respiratory 16 18 18 Rate Blood Pressure 105/59 (mmHg) O2 Sat by Pulse 96 Oximetry 10/21/18 10/21/18 10/21/18 07:27 07:38 08:00 Temperature 98.0 F Pulse Rate 72 Respiratory 17 18 18 Rate Blood Pressure 116/69 (mmHg) O2 Sat by Pulse 95 95 Oximetry 10/21/18 09:16 Temperature Pulse Rate Respiratory 18 Rate Blood Pressure (mmHg) O2 Sat by Pulse Oximetry Intake and Output Last 24 Hours 10/19/18 10/20/18 10/21/18 10/22/18 06:59 06:59 06:59 06:59 Intake Total 3416 4996 1640 Output Total 800 1380 883 Balance 2616 3616 757 Weight 262 lb Intake: IV Fluids 2993 4396 980 ABX - ZOSYN 334 LR 993 2093 NS (0.9%) 1869 980 NS 100ML, Zosyn 3.375G 100 IVPB 103 ABX - ZOSYN 103 Oral 320 600 660 Output: DANIELLE #1 330 83 Urine 800 1050 800 Other: Estimated Void Medium # Bowel Movements 0 0 # Voids 1 Gen: appears comfortable; sitting up in chair Heart: reg Lungs: clear Abd: lap sites ok; DANIELLE: light serosang; nonbilious; moderate drainage on drain dsg-> changed. Soft; mild to moderate tenderness. Labs: Laboratory Tests 10/20/18 10/20/18 10/20/18 12:21 18:06 21:02 Potassium Glucose POC Glucose (mg/dL) 129 H 134 H 170 H Phosphorus Magnesium 10/21/18 10/21/18 06:48 07:40 Potassium 3.3 L Glucose 109 H POC Glucose (mg/dL) 114 H Phosphorus 1.9 L Magnesium 1.7 L A: s/p lap donal for acute cholecystitis, improving P: will d/w Dr. Odonnell re: plan for IV abx and when she can be d/c'd home ( likely 10/22?). Her fs glucoses are reasonable and I will resume her usual Metformin. Her fs and Lispro could probably be d/c'd. She is getting KCl po. I will defer KPO4 repletion 2/2 her latex allergy and because she is shine diet. Will order Magnesium.
[2018-10-21] MEDS: metFORMIN* 1,000 MG TAB PO SCH ×2 (09:44→16:49)
[2018-10-22] MEDS: oxyCODONE/Acetamin 5/325 MG* TAB PO PRN ×2 (04:09→08:32)
[2018-10-22] MEDS: ZOSYN 3.375 GM Q8H per EXTENDED INFUSION IVPB SCH ×2 (05:55)
[2018-10-22] MEDS: Heparin VIAL(*) 5000 UNITS/ML VIAL (FIVE THOUSAND) SUBCUT SCH (05:56)
[2018-10-22] MEDS: Potassium Chlor TAB* 20 MEQ TAB.ER PO SCH (08:32)
[2018-10-22] MEDS: Metoprolol Succinate XL TAB* 25 MG PO SCH (08:32)
[2018-10-22] MEDS: FLUoxetine CAP* 10 MG PO SCH (08:32)
[2018-10-22] MEDS: Insulin LISPRO* 1 UNITS UNIT SUBCUT SCH ×2 (08:33→11:44)
[2018-10-22] MEDS: metFORMIN* 1,000 MG TAB PO SCH (08:33)
[2018-10-22] MEDS: Pantoprazole TAB * 40 MG TAB PO SCH (08:33)
[2018-10-22] MEDS: BuPROPion XL* 150 MG TAB.XL PO SCH (08:33)
[2018-10-22] MEDS: Cetirizine* 10 MG TAB PO SCH (08:33)
--- NOTE | 2018-10-22 10:55 | PN ---
Progress Note - Progress Note Date of Service: 10/22/18 SOAP: Subjective: Doing well, passing large amounts of flatus Tolerating diet Pain well controlled Ambulating in halls Objective: Temp Pulse Resp BP Pulse Ox 98.3 F 75 16 144/78 98 10/22/18 07:15 10/22/18 07:15 10/22/18 08:32 10/22/18 07:15 10/22/18 08:00 Intake & Output 10/20/18 10/21/18 10/22/18 10/23/18 06:59 06:59 06:59 06:59 Intake Total 4996 1640 2716 120 Output Total 1380 883 420 Balance 3616 757 2296 120 Intake: IV Fluids 4396 980 851 ABX - ZOSYN 334 108 LR 2093 NS (0.9%) 1869 980 743 NS 100ML, Zosyn 3.375G 100 IVPB 110 ABX - ZOSYN 110 Medicated IV 55 Magnesium 55 Oral 064 776 3708 120 Output: DANIELLE #1 330 83 20 Urine 1050 800 400 Other: Estimated Void Medium Medium # Bowel Movements 0 0 0 Estimated Stool Amount Large # Voids 1 3 PEX: Comfortable Lungs are clear Abd is soft and non-distended. Incisions are clean and dry. DANIELLE in place with small amount of thin serous fluid in bulb Ext without edema Assessment: POD#3 s/p lap choly for acute calculous cholecytitis Plan: D/C home today D/C drain No further antibiotics Office follow up, instructions given Resume all home meds, restart Elliquis tonight.
--- NOTE | 2018-10-22 11:29 | PN ---
Progress Note - Progress Note Date of Service: 10/22/18 Note: DANIELLE drain removed w/o incident; DSD placed; instructions reviewed.
[2018-10-22 12:02] VITALS: BP 129/72
--- NOTE | 2018-10-22 13:29 | DS ---
CC: [facility]; Dr. Jessica Adhikari. DISCHARGE SUMMARY: DATE OF ADMISSION: 10/18/18 DATE OF DISCHARGE: 10/22/18 PRINCIPAL DIAGNOSIS: Acute calculous cholecystitis. SECONDARY DIAGNOSES: 1. Morbid obesity. 2. [id number] diabetes mellitus. 3. History of deep vein thrombosis with presumed hypercoagulable state. 4. Anxiety. 5. Chronic obstructive pulmonary disease. CONDITION ON DISCHARGE: Good. DISPOSITION: Home. MEDICATIONS ON DISCHARGE: 1. Maryam 180 mg daily. 2. Prozac 20 mg daily. 3. Metformin 1000 mg b.i.d. 4. Metoprolol 25 mg q. day. 5. Omeprazole 20 mg q. day. 6. Oxycodone for pain p.r.n. 7. Albuterol inhaler q.4 hours p.r.n. 8. Eliquis 5 mg p.o. b.i.d., she is to take the first dose on the night of discharge. 9. Atorvastatin 10 mg daily. 10. Ferrous sulfate 325 mg daily. 11. Losartan/hydrochlorothiazide 100/12.5 one tablet daily. OTHER FOLLOWUP: An appointment to be made to be seen in the surgical office in 7 to 10 days for foll owup. Drain was removed upon discharge. She required no further oral antibiotics. Wound and activity inst ructions were given. HISTORY OF PRESENT ILLNESS: Ms. Nayeli Ordonez is a 63-year-old woman who presented to the emergency room with 24 to 36 hours of severe epigastric and right upper quadrant abdominal discomfort. An ultr asound confirmed gallstones without gallbladder wall thickening; however, she had leukocytosis and lo w-grade fever. On physical exam, she had tenderness in the right lower quadrant. Surgical consultat ion was obtained in the emergency room HOSPITAL COURSE: After being seen in the emergency room, patient was felt to have acute calculous ch olecystitis. She was admitted to the Surgical Service. She was started on IV antibiotics and kept n .p.o. She had been on Eliquis for her clotting disorder and this was held, and she was started on frey bcutaneous heparin. Hospitalist consultation was obtained for management of this as well as her other medical issues. On hospital day #1, after she had been off her Eliquis for 2 days, she was taken to the operating eliza m where she underwent a laparoscopic cholecystectomy for acute calculous cholecystitis and drain plac ement. She tolerated this well. Postoperatively, she was maintained on 3 days of IV antibiotics. Her DANIELLE drain drained serous fluid, minimal amount on the day of discharge. She remained afebrile. Her diet was advanced as her ileus r esolved and she was ambulating. Her pain was well controlled and she was discharged home with the ab ove instructions. [id number]/[facility] #: [id number]
== END 2018-10-22 12:45 | disposition home or self-care (01) | DRG 710 ==
LOC: ED 09:04 → SSU 12:38
PROVIDERS: ADMIT Surgery; ATTEND Surgery
PROC: 0FT44ZZ Resection of Gallbladder, Percutaneous Endoscopic Approach (ICD-10-PCS; principal; 2018-10-19 13:00)
DX: A41.9 Sepsis, unspecified organism (principal); K80.00 Calculus of gallbladder with acute cholecystitis without obstruction; K82.1 Hydrops of gallbladder; E11.42 Type 2 diabetes mellitus with diabetic polyneuropathy; E66.01 Morbid (severe) obesity due to excess calories; F41.9 Anxiety disorder, unspecified; J44.9 Chronic obstructive pulmonary disease, unspecified; I10 Essential (primary) hypertension; E78.00 Pure hypercholesterolemia, unspecified; E78.5 Hyperlipidemia, unspecified; K21.9 Gastro-esophageal reflux disease without esophagitis; F32.9 Major depressive disorder, single episode, unspecified; Z68.39 Body mass index [BMI] 39.0-39.9, adult; Z86.718 Personal history of other venous thrombosis and embolism; Z79.01 Long term (current) use of anticoagulants; Z79.84 Long term (current) use of oral hypoglycemic drugs; D18.09 Hemangioma of other sites; Z79.51 Long term (current) use of inhaled steroids; Z79.899 Other long term (current) drug therapy; Z91.040 Latex allergy status; Z91.013 Allergy to seafood; Z88.8 Allergy status to other drugs, medicaments and biological substances; Z91.018 Allergy to other foods; Z83.2 Family history of diseases of the blood and blood-forming organs and certain disorders involving the immune mechanism; Z80.1 Family history of malignant neoplasm of trachea, bronchus and lung; Z80.7 Family history of other malignant neoplasms of lymphoid, hematopoietic and related tissues; Z87.891 Personal history of nicotine dependence
CPT/HCPCS: 36415; 80048; 80053; 80076; 82150; 83605; 83690; 83735; 84100; 85025; 86140; 87040; 88304; 99284; A9270-GY; C1776; J0330; J1100; J1170; J1240; J1644; J2250; J2270; J2405; J2543; J2704; J2710; J2765; J3010; J3475

== ENCOUNTER 2022-10-15 07:30 | Inpatient (IN) ==
[2022-10-20] MEDS ORDERED: Buffered Lidocaine 1% SYRIN 1 ml INTRADERM ONE (06:00)
[2022-10-20] MEDS ORDERED: Famotidine IV 10 MG/ML 2 ml VIAL (20 mg) IV ONE (06:00)
[2022-10-20] MEDS ORDERED: Lactated Ringers 1000 ml BAG 1,000 ML IV SCH ×2 (06:00→13:00)
[2022-10-20] MEDS ORDERED: Chlorhexidine MOUTHWASH 0.12% 15 ML UDC ONE (06:09)
[2022-10-20] MEDS ORDERED: ceFAZolin 2 GM PREMIX 2 GM/50 ML BAG ONE (06:17)
[2022-10-20] MEDS ORDERED: Famotidine IV 10 MG/ML 2 ml VIAL (20 mg) ONE (06:18)
[2022-10-20 06:34] LABS: Rapid COVID-19 Molecular Undetected (Undetected)
[2022-10-20] MEDS ORDERED: Glycopyrrolate IV 0.2 MG/ML 1 ML VIAL ONE (06:51)
[2022-10-20] MEDS ORDERED: Phenylephrine 40 mcg/mL 10mL (400mcg) SYRINGE ONE (06:51)
[2022-10-20] MEDS ORDERED: Dexamethasone IV 4 MG/ML VIAL 1 ml VIAL ONE (06:51)
[2022-10-20] MEDS ORDERED: Propofol 10 MG/ML 20 ML BTL ONE (06:51)
[2022-10-20] MEDS ORDERED: Lidocaine 2% PF 5 ML VIAL ONE ×2 (06:51→12:03)
[2022-10-20] MEDS ORDERED: Ondansetron 4 mg VIAL 2 MG/ML 2 ml VIAL ONE (06:51)
[2022-10-20] MEDS ORDERED: Midazolam 2 mg/2 ml VIAL 1 mg/ml 2 ml VIAL (2 mg) ONE (06:52)
[2022-10-20] MEDS ORDERED: fentaNYL 250 mcg/5 ml 50 MCG/ML 5 ml VIAL (250 MCG) ONE (06:52)
[2022-10-20] MEDS ORDERED: Rocuronium 50 mg VIAL 10 mg/ml 5 ml VIAL (50 mg) ONE ×2 (06:52→10:44)
[2022-10-20] MEDS ORDERED: Sevoflurane BOTTLE ONE (06:58)
[2022-10-20] MEDS ORDERED: Lidocaine 1% w EPI 1:200,000 SDV 30 ML VIAL ONE (07:07)
[2022-10-20] MEDS ORDERED: Gelfoam Sponge SIZE 100 SPONGE ONE (07:08)
[2022-10-20] MEDS ORDERED: Thrombin 5,000 UNITS(BOVINE) for Ultrasound Guided Pseudoaneursym ONE (07:08)
[2022-10-20] MEDS ORDERED: ceFAZolin VIAL VIAL ONE (07:08)
[2022-10-20] MEDS ORDERED: Prochlorperazine 5 mg/ml 2 ml VIAL (10 mg) IV PRN (09:48)
[2022-10-20] MEDS ORDERED: Naloxone 0.4 mg VIAL 0.4 mg/ml 1 ml VIAL IV PRN (09:48)
[2022-10-20] MEDS ORDERED: HYDROmorphone 1 MG/1 ML SYRINGE IV PRN (09:48)
[2022-10-20] MEDS ORDERED: Acetaminophen IV 1 GM/100ML 1,000 MG/100 ML BAG IV ONE (10:19)
[2022-10-20] MEDS ORDERED: Ketamine HCL 50 mg/ml 10 ml VIAL (500 MG) ONE (10:44)
[2022-10-20] MEDS ORDERED: Ondansetron 4 mg VIAL 2 MG/ML 2 ml VIAL IV PRN (12:41)
[2022-10-20] MEDS ORDERED: HYDROcodone/ACETAMIN 5/325 mg TAB PO PRN (12:41)
[2022-10-20] MEDS ORDERED: Albuterol HFA INHALER 8 gm MDI INH PRN (12:46)
[2022-10-20] MEDS ORDERED: Morphine 2 MG/ML SYRINGE IV PRN (12:50)
[2022-10-20] MEDS ORDERED: Senna TAB 8.6 mg TAB PO PRN (12:50)
[2022-10-20] MEDS ORDERED: fentaNYL 100 mcg/2 ml 50 MCG/ML VIAL ONE (12:59)
[2022-10-20] MEDS: fentaNYL 100 mcg/2 ml 50 MCG/ML VIAL IV PRN ×3 (13:01→13:32)
[2022-10-20] MEDS: HYDROcodone/ACETAMIN 5/325 mg TAB PO PRN ×2 (16:36→20:49)
[2022-10-20] MEDS: Potassium Chlor 20 meq TAB.ER PO SCH (20:49)
[2022-10-20] MEDS ORDERED: Insulin GLARGINE 100 un/ml 10 ml VIAL SUBCUT SCH (21:00)
[2022-10-21] MEDS: HYDROcodone/ACETAMIN 5/325 mg TAB PO PRN ×5 (02:20→23:13)
[2022-10-21] MEDS: Potassium Chlor 20 meq TAB.ER PO SCH ×2 (08:30→20:27)
[2022-10-22 05:56] VITALS: BP 104/77
[2022-10-22] MEDS: HYDROcodone/ACETAMIN 5/325 mg TAB PO PRN (07:35)
[2022-10-22] MEDS: Potassium Chlor 20 meq TAB.ER PO SCH (07:36)
== END 2022-10-22 09:35 | disposition home or self-care (01) | DRG 304 ==
LOC: AA 10-20 05:42 → SSU 10-20 15:59
PROVIDERS: ADMIT Neurological Surgery; ATTEND Neurological Surgery
PROC: O.NEPLF (2022-10-20 07:30)